=== PATIENT | male | born 1980 | race Caucasian/White ===

== ENCOUNTER 2017-05-26 20:20 | Emergency (ER) | payer MEDICAID, SELFPAY ==
[2017-05-26 20:20] VITALS: BP 136/82; PULSE 87; RESP 17; TEMP 36.3; O2SAT 98; BMI 21.1
--- NOTE | 2017-05-26 21:10 | CT_ITS ---
STUDY: CT ABDOMEN AND PELVIS WITH CONTRAST REASON FOR EXAM: Male, 36 years old. Abdominal pain. RADIATION DOSAGE (If Supplied By Facility): CTDIvol = ( 17.72 ) mGy, DLP = ( 272.30 ) mGycm TECHNIQUE: Transaxial images were obtained from the dome of the diaphragm to the symphysis pubis with oral contrast. 100ml ml of Isovue 300 contrast was administered. Sagittal and coronal images were reconstructed. Individualized dose optimization techniques were used for this CT. COMPARISON: None. FINDINGS: The visualized lung bases are unremarkable. The visualized portions of the heart are within normal limits. Normal liver. There are surgical clips in the gallbladder fossa consistent with a prior cholecystectomy. Normal spleen. Normal pancreas. Normal bilateral adrenal glands. Normal right kidney. Normal left kidney. Normal visualized stomach. Normal small intestine. Normal colon. The appendix is visualized and appears normal. Normal abdominal aorta. Normal inferior vena cava. Normal retroperitoneum. Normal urinary bladder. Normal abdominal wall. Normal osseous structures. CT/Abdomen/Pelvis WITH Contrast IMPRESSION: No definite acute abnormality. Electronically Signed: Jad Wan MD at 23:22 EST , Service support ,
[2017-05-26] MEDS: Ondansetron 4 MG/2 ML Vial IV ×2 (21:30→23:59)
[2017-05-26] MEDS: 0.9% Normal Saline 1,000 ML 150 ML IV (21:31)
[2017-05-26 21:42] LABS: Absolute Lymphocyte Count 2.68 X10^3/ul (0.83-4.51); Absolute Neutrophil Count 11.6 X10^3/uL (2.0-7.7); Basophil# 0.02 X10^3/uL; Basophil% 0.1 % (0-1); Eosinophil# 0.12 X10^3/uL; Eosinophils% 0.8 % (0-5); Hematocrit 43.9 % (40-54); Hemoglobin 15.2 g/dl (13.0-16.5); Lymphocyte # 2.68 X10^3/ul (4.0); Lymphocyte % 17.5 % (19-41); Mean Corp Hgb Conc 34.6 g/gl (32-36); Mean Corpuscular Hgb 29.7 pg (27.0-32.0); Mean Corpuscular Volume 85.7 fL (80-94); Mean Platelet Vol. 10.5 fl (6.2-12.0); Monocyte# 0.86 X10^3/uL; Monocyte% 5.6 % (0-10); Neutrophil # 11.63 X10^3/uL (2.7-7.7); Neutrophil % 75.8 % (47-70); Platelet Count 235 K/mm3 (150-450); RBC Distribution Width CV 12.1 % (11.6-14.6); RBC Distribution Width SD 38.3 fl (35.1-43.9); Red Blood Count 5.12 M/mm3 (4.6-6.2); White Blood Count 15.3 K/mm3 (4.4-11.0)
[2017-05-26 21:45] LABS: POSITIVE COUNT NO; POSITIVE DIFFERENTIAL NO; POSITIVE MORPHOLOGY NO
[2017-05-26 22:07] LABS: Bacteria 0 SEEN /hpf (None Seen); Mucous, Urine 0 SEEN /hpf (<or=2+); Red Blood Cells-Urine 0 SEEN /hpf (0-5); Squamous Epithelial Cells - UA 0 SEEN /hpf (0-5); White Blood Cells 0 SEEN /hpf (0-5)
[2017-05-26 22:10] LABS: Anion Gap 10 (5-15); BUN 4 mg/dL (7-18); BUN/Creat Ratio 5.3 RATIO (10-20); Calcium,Total 8.7 mg/dL (8.5-10.1); Chloride 108 mmol/L (98-107); Creatinine, Serum 0.75 mg/dL (0.70-1.30); EST Glomerular Filtration Rate 123 mL/min (>60); Est Glom Filt Rate - Afr Amer 149 mL/min (>60); Estimated Creatinine Clearance 115.67 ml/min; Glucose 133 mg/dL (74-106); Potassium 3.6 mmol/L (3.5-5.1); Sodium Level 140 mmol/L (136-145)
[2017-05-26 22:20] LABS: Color, Urine Yellow (Yellow); Glucose, Dipstick Normal (Normal); Ketone-Dipstick Negative (Negative); Leukocyte Esterase-Dipstick Negative /ul (Negative); Nitrite-Dipstick Negative (Negative); Occult Blood-Urine Negative /ul (Negative); Protein-Dipstick Negative (Negative); Urine Bilirubin Dipstick Negative (Negative); Urine Clarity Clear (Clear); Urine Urobilinogen 4 mg/dl (Normal)
[2017-05-26 22:28] VITALS: BP 104/62; PULSE 68; RESP 18; O2SAT 100
--- NOTE | 2017-05-26 23:51 | ED.VISSUMM ---
- ER Visit Summary Date of Service: 05/26/17 Chief Complaint: Right-sided abdominal pain History of Present Illness: The patient is a 36 M with right-sided abdominal pain throughout the day today. Patient states it started gradually and continued to worsen throughout the day. He had subjective fevers and chills. He reports nausea but no vomiting. He has not made much of an appetite today and has not eaten much. Patient has had prior cholecystectomy. Physical Examination: Vital signs are unremarkable. Patient is afebrile. Patient's lying in bed in no acute distress. Head and neck examination is unremarkable. Heart is regular rate and rhythm. Lung sounds are clear. Abdomen is soft with tenderness in the right lower quadrant. There is guarding but no rebound. Hypoactive bowel sounds are noted throughout. Patient does not have right CVA tenderness. Test Results: CBC reveals a white count of 15.3 with 75% neutrophils. Chemistry studies are normal. Urine is normal. CT scan of the abdomen and pelvis with p.o. and IV contrast is obtained. There is no evidence of definite acute abnormality. Appendix is well-visualized and appears normal. Emergency Department Course and Treatment: Patient was given morphine, Zofran, and IV fluids on arrival here. Test results were discussed with him. He was encouraged use Tylenol or ibuprofen as needed at home for pain. Follow a bland diet. He is to return for worsening symptoms. Treatment Plan: [] Disposition: Discharge Impression: 1. Right lower quadrant pain 2. Leukocytosis This note was generated with [employer] dictation software. It may contain incorrect words, spelling, and punctuation that were not noted in review of the chart prior to signing ED Disposition - Plan for ED Patient: Disposition: Home or Assisted Living Chief Complaint: Abd Pain Instructions: ED Abdominal Pain Unkn Cause Male Referrals: Kell Dover [Primary Care Provider] - 3-5 Days if not improving
[2017-05-27 00:01] VITALS: BP 99/70; PULSE 61; RESP 18; O2SAT 100
== END 2017-05-27 00:04 | disposition home or self-care (01) ==
PROVIDERS: Emergency Provider Emergency Medicine; Family Provider Family Medicine; PCP Family Medicine
DX: R10.31 Right lower quadrant pain (principal); D72.829 Elevated white blood cell count, unspecified; R11.0 Nausea; K21.9 Gastro-esophageal reflux disease without esophagitis; Z90.49 Acquired absence of other specified parts of digestive tract; Z72.0 Tobacco use
CPT/HCPCS: 74177; 80048; 81001; 85025; 96361; 96374; 96375; 96376; 99283; J7030; Q9967; A4216; J2405

== ENCOUNTER 2017-05-27 16:45 | Emergency (ER) | payer MEDICAID, SELFPAY ==
[2017-05-27 16:46] VITALS: BP 142/78; PULSE 72; RESP 16; TEMP 37.6; O2SAT 100; BMI 19.7
[2017-05-27] MEDS: 0.9% Normal Saline 1,000 ML 1000 ML IV (17:39)
[2017-05-27] MEDS: Ondansetron 4 MG/2 ML Vial IV ×2 (17:40→20:37)
[2017-05-27 17:42] VITALS: PULSE 68; RESP 16
[2017-05-27 17:54] LABS: Absolute Lymphocyte Count 2.63 X10^3/ul (0.83-4.51); Basophil# 0.02 X10^3/uL; Basophil% 0.2 % (0-1); Eosinophil# 0.13 X10^3/uL; Hematocrit 43.2 % (40-54); Hemoglobin 14.9 g/dl (13.0-16.5); Lymphocyte # 2.63 X10^3/ul (4.0); Lymphocyte % 21.1 % (19-41); Mean Corp Hgb Conc 34.5 g/gl (32-36); Mean Corpuscular Hgb 29.8 pg (27.0-32.0); Mean Corpuscular Volume 86.4 fL (80-94); Mean Platelet Vol. 10.2 fl (6.2-12.0); Monocyte# 0.66 X10^3/uL; Monocyte% 5.3 % (0-10); Neutrophil # 8.99 X10^3/uL (2.7-7.7); Neutrophil % 72.3 % (47-70); Platelet Count 215 K/mm3 (150-450); RBC Distribution Width CV 12.4 % (11.6-14.6); RBC Distribution Width SD 39.4 fl (35.1-43.9); White Blood Count 12.4 K/mm3 (4.4-11.0)
[2017-05-27 17:56] LABS: POSITIVE COUNT NO; POSITIVE DIFFERENTIAL NO; POSITIVE MORPHOLOGY NO
[2017-05-27 18:05] LABS: Lactic Acid 1.2 mmol/L (0.4-2.0)
[2017-05-27 18:08] LABS: AST(SGOT) 25 U/L (15-37); Alanine Aminotransfer ALT/SGPT 50 U/L (16-61); Albumin, Serum 3.5 g/dL (3.2-5.0); Alkaline Phosphatase 52 U/L (45-117); Anion Gap 6 (5-15); BUN 4 mg/dL (7-18); BUN/Creat Ratio 5.1 RATIO (10-20); Calcium,Total 8.7 mg/dL (8.5-10.1); Chloride 107 mmol/L (98-107); Creatinine, Serum 0.79 mg/dL (0.70-1.30); EST Glomerular Filtration Rate 116 mL/min (>60); Est Glom Filt Rate - Afr Amer 141 mL/min (>60); Estimated Creatinine Clearance 102.49 ml/min; Globulin 3.9 g/dL (2.2-4.2); Glucose 100 mg/dL (74-106); Potassium 3.7 mmol/L (3.5-5.1); Protein, Total 7.4 g/dL (6.4-8.2); Sodium Level 140 mmol/L (136-145)
[2017-05-27 18:47] VITALS: BP 117/82; PULSE 60; RESP 16; TEMP 36.8
[2017-05-27] MEDS: 0.9% Normal Saline 1,000 ML 150 ML IV (18:47)
[2017-05-27 19:28] LABS: Bacteria 0 SEEN /hpf (None Seen); Mucous, Urine 0 SEEN /hpf (<or=2+); Red Blood Cells-Urine 0 SEEN /hpf (0-5); White Blood Cells 0 SEEN /hpf (0-5)
[2017-05-27 19:32] LABS: Color, Urine Yellow (Yellow); Glucose, Dipstick Normal (Normal); Ketone-Dipstick Negative (Negative); Leukocyte Esterase-Dipstick Negative /ul (Negative); Nitrite-Dipstick Negative (Negative); Occult Blood-Urine Negative /ul (Negative); Protein-Dipstick Negative (Negative); Specific Gravity, Urine 1.005 (1.002-1.030); Urine Bilirubin Dipstick Negative (Negative); Urine Clarity Sl. Cloudy (Clear); Urine Urobilinogen Normal (Normal)
[2017-05-27 19:38] LABS: Squamous Epithelial Cells - UA 0-5 SEEN /hpf (0-5)
--- NOTE | 2017-05-27 20:24 | ED.DCSUM_ITS ---
- ER Visit Summary Date of Service: 05/27/17 Chief Complaint: Abdominal pain History of Present Illness: The patient is a 36 M with onset of right lower quadrant abdominal pain yesterday. Patient was seen and evaluated in the emergency room last night. He was noted to have a leukocytosis but otherwise normal labs and a normal CT scan. Patient states that today he has developed a fever up to 101.4 this morning. He also states that he is having some diarrhea. He does report continued poor appetite. Physical Examination: Vital signs in triage include a temperature 99.6 TA, but this was repeated in the room and is 98.3 orally. Remainder of vitals are normal. Head and neck examination is normal. Heart is regular rate and rhythm. Lung sounds are clear. Abdomen is soft with mild to moderate tenderness in the right lower quadrant. There is no guarding or rebound. He has hypoactive bowel sounds throughout. Test Results: CBC reveals a white count of 12.4 with 72% neutrophils. This is compared to a white count of 15 yesterday. Chemistry studies, LFTs, and urinalysis remain normal. Lactate was obtained tonight and is normal. Emergency Department Course and Treatment: Patient was given morphine, Zofran, and IV fluids. On repeat examination abdomen is soft with very mild tenderness in the right lower quadrant. There continues to be no guarding or rebound. With the patient's physical exam essentially unchanged or even slightly improved when compared to last night, I do not feel that repeat imaging is warranted. In addition, labs are improving. Patient began a perception for 12 tabs of [place] along with Zofran. He is to follow-up with his primary care physician or return here for worsening symptoms. Treatment Plan: [] Disposition: Discharge Impression: 1. Right lower quadrant pain, uncertain etiology 2. Improving leukocytosis This note was generated with [employer] dictation software. It may contain incorrect words, spelling, and punctuation that were not noted in review of the chart prior to signing ED Disposition - Plan for ED Patient: Disposition: Home or Assisted Living Chief Complaint: Abd Pain Instructions: ED Abdominal Pain Unkn Cause Male Prescriptions: Hydrocodone Bitart/Apap 5-325 [Banner 5/325] 1 - 2 tablet PO Q6H PRN PRN 3 Days # 12 tablet PRN Reason: Pain Ondansetron [Zofran Odt] 4 mg PO Q8H PRN PRN #10 tab PRN Reason: Nausea Referrals: Kell Dover [Primary Care Provider] - 3-5 Days
--- NOTE | 2017-05-27 20:24 | ED.DEP ---
ED Disposition - Plan for ED Patient: Disposition: Home or Assisted Living Chief Complaint: Abd Pain Instructions: ED Abdominal Pain Unkn Cause Male Prescriptions: Hydrocodone Bitart/Apap 5-325 [[place]ynn 5/325] 1 - 2 tablet PO Q6H PRN PRN 3 Days #12 tablet PRN Reason: Pain Ondansetron [Zofran Odt] 4 mg PO Q8H PRN PRN #10 tab PRN Reason: Nausea Referrals: Kell Dover [Primary Care Provider] - 3-5 Days
[2017-05-27 20:39] VITALS: RESP 16
[2017-05-27 20:54] VITALS: BP 118/74; PULSE 56; RESP 16; O2SAT 99
== END 2017-05-27 20:56 | disposition home or self-care (01) ==
PROVIDERS: Emergency Provider Emergency Medicine; Family Provider Family Medicine; PCP Family Medicine
DX: R10.31 Right lower quadrant pain (principal); D72.829 Elevated white blood cell count, unspecified; R19.7 Diarrhea, unspecified; R11.0 Nausea; Z72.0 Tobacco use
CPT/HCPCS: 80048; 80076; 81001; 83605; 85025; 96361; 96374; 96375; 96376; 99283; J7030; A4216; J2405

== ENCOUNTER 2017-06-01 21:05 | Emergency (ER) | payer MEDICAID, SELFPAY ==
[2017-06-01 21:06] VITALS: BP 120/78; PULSE 91; RESP 16; TEMP 37.1; O2SAT 98; BMI 20.5
[2017-06-01] MEDS: Ondansetron ODT 4 MG Tablet PO (22:34)
[2017-06-01 22:47] LABS: Absolute Lymphocyte Count 2.97 X10^3/ul (0.83-4.51); Absolute Neutrophil Count 8.3 X10^3/uL (2.0-7.7); Basophil# 0.03 X10^3/uL; Basophil% 0.2 % (0-1); Eosinophil# 0.25 X10^3/uL; Hematocrit 42.5 % (40-54); Hemoglobin 14.4 g/dl (13.0-16.5); Lymphocyte # 2.97 X10^3/ul (4.0); Lymphocyte % 23.9 % (19-41); Mean Corp Hgb Conc 33.9 g/gl (32-36); Mean Corpuscular Hgb 29.3 pg (27.0-32.0); Mean Corpuscular Volume 86.6 fL (80-94); Mean Platelet Vol. 10.8 fl (6.2-12.0); Monocyte# 0.82 X10^3/uL; Monocyte% 6.6 % (0-10); Neutrophil # 8.32 X10^3/uL (2.7-7.7); Neutrophil % 67.1 % (47-70); Platelet Count 219 K/mm3 (150-450); RBC Distribution Width CV 12.4 % (11.6-14.6); RBC Distribution Width SD 39.7 fl (35.1-43.9); Red Blood Count 4.91 M/mm3 (4.6-6.2); White Blood Count 12.4 K/mm3 (4.4-11.0)
[2017-06-01] MEDS: Dicyclomine 10 MG Capsule 20 MG PO (22:50)
[2017-06-01 22:52] LABS: POSITIVE COUNT NO; POSITIVE DIFFERENTIAL NO; POSITIVE MORPHOLOGY NO
[2017-06-01 22:53] LABS: ALB/GLOB Ratio 0.8 RATIO (0.9-2.4); AST(SGOT) 31 U/L (15-37); Alanine Aminotransfer ALT/SGPT 48 U/L (16-61); Albumin, Serum 3.2 g/dL (3.2-5.0); Alkaline Phosphatase 54 U/L (45-117); Anion Gap 6 (5-15); BUN 7 mg/dL (7-18); BUN/Creat Ratio 10.1 RATIO (10-20); Calcium,Total 8.3 mg/dL (8.5-10.1); Chloride 109 mmol/L (98-107); Creatinine, Serum 0.69 mg/dL (0.70-1.30); EST Glomerular Filtration Rate 135 mL/min (>60); Est Glom Filt Rate - Afr Amer 164 mL/min (>60); Estimated Creatinine Clearance 122.37 ml/min; Globulin 3.9 g/dL (2.2-4.2); Glucose 90 mg/dL (74-106); Lipase 209 U/L (73-393); Potassium 3.8 mmol/L (3.5-5.1); Protein, Total 7.1 g/dL (6.4-8.2); Sodium Level 142 mmol/L (136-145)
[2017-06-01 23:04] LABS: Color, Urine Yellow (Yellow); Glucose, Dipstick Normal (Normal); Ketone-Dipstick Negative (Negative); Leukocyte Esterase-Dipstick 25 /ul (Negative); Nitrite-Dipstick Negative (Negative); Occult Blood-Urine Negative /ul (Negative); Protein-Dipstick 15 mg/dl (Negative); Specific Gravity, Urine 1.015 (1.002-1.030); Urine Bilirubin Dipstick Negative (Negative); Urine Clarity Sl. Cloudy (Clear); Urine Urobilinogen 1 mg/dl (Normal)
--- NOTE | 2017-06-01 23:06 | ED.DCSUM_ITS ---
- ER Visit Summary Date of Service: 06/01/17 Chief Complaint: Lower quadrant abdominal pain History of Present Illness: The patient is a 36 M who presents for right lower quadrant abdominal pain for 4 days. This is patient's third visit for the same complaint. He states he has been having right lower quadrant abdominal pain with fever, nausea and vomiting. He states he vomited once today. He also endorses 3 days of diarrhea. At his last visit he was prescribed [place] and states that does help. He denies any urinary symptoms, no concern for STI, no discharge or bleeding. No blood in his bowel movements. He has an appointment on with his primary care doctor. He denies any medical history. No chest pain, shortness of breath, back pain or other complaints. Physical Examination: Vital signs: afebrile, hemodynamically stable, no hypoxia on room air General: well nourished, well developed, in no distress Skin: warm, dry, no rash, no pallor HEENT: normocephalic and atraumatic; PERRL, EOMI, moist mucous membranes Cardiovascular: regular rate and rhythm without murmurs, no peripheral edema, 2 + pulses all distal extremities Respiratory: No increased work of breathing, lungs are clear to auscultation bilaterally, no rales, rhonchi or wheezing Abdominal: Abdomen is soft, nontender with normoactive bowel sounds, no guarding or rebound, no masses, no tender inguinal lymphadenopathy MSK: Moves all extremities, no deformities, normal strength Neuro: Awake and alert, oriented ?4. No facial droop, sensation and motor function intact and symmetric Test Results: Abnormal Lab Results 06/01/17 06/01/17 22:25 22:25 WBC 12.4 H RBC 4.91 Hgb 14.4 Hct 42.5 MCV 86.6 MCH 29.3 MCHC 33.9 RDW 12.4 RDW Differential 39.7 Plt Count 219 MPV 10.8 Immature Gran % (Auto) 0.200 Neut % (Auto) 67.1 Lymph % (Auto) 23.9 [place] % (Auto) 6.6 Eos % (Auto) 2.0 Baso % (Auto) 0.2 Absolute Neuts (auto) 8.3 H Absolute Lymphs (auto) 2.97 Total Counted Not Reportable Sodium 142 Potassium 3.8 Chloride 109 H Carbon Dioxide 27.0 Anion Gap 6 BUN 7 Creatinine 0.69 L Estim Creat Clear Calc 122.37 Est GFR (MDRD) Af Amer 164 Est GFR (MDRD) Non-Af 135 BUN/Creatinine Ratio 10.1 Glucose 90 Calcium 8.3 L Total Bilirubin 0.40 AST 31 ALT 48 Alkaline Phosphatase 54 Total Protein 7.1 Albumin 3.2 Globulin 3.9 Albumin/Globulin Ratio 0.8 L Lipase 209 Emergency Department Course and Treatment: This is patient's third visit for the same complaint, and his prior records were reviewed. He had thorough workups, including lab work and urinalysis and a CT scan of the abdomen and pelvis that showed no acute processes. Patient's exam today is completely benign and thus no imaging will be repeated. Lab work shows continued improvement of his CBC, with normalization of the differential. No electrolyte derangements or hepatic derangements. Patient was given Bentyl and Zofran for symptomatic relief. Here he has an appointment on with his primary care doctor, and no concerning findings on workup or exam are noted that would require further imaging, intervention or admission. Patient is encouraged to keep the appointment on and may need a referral to GI doctor or colonoscopy for further characterization of his continued right lower quadrant pain. Patient agreed with this plan was discharged home. Treatment Plan: [] Disposition: [] Impression: Abdominal pain This note was generated with [employer] dictation software. It may contain incorrect words, spelling, and punctuation that were not noted in review of the chart prior to signing ED Disposition - Plan for ED Patient: Chief Complaint: Abd Pain Referrals: Kell Dover [Primary Care Provider] -
--- NOTE | 2017-06-01 23:26 | ED.DEP ---
ED Disposition - Plan for ED Patient: Disposition: Home or Assisted Living Chief Complaint: Abd Pain Instructions: ED Abdominal Pain Unkn Cause Prescriptions: Ondansetron [Zofran Odt] 4 mg PO Q8H PRN PRN #10 tab PRN Reason: Nausea Dicyclomine HCl [Bentyl] 20 mg PO TIDAC #20 cap Referrals: Kell Dover [Primary Care Provider] - Keep Og appointment Additional Instructions: Your workup for your abdominal pain showed improvement in your blood work. The Bentyl and Zofran as needed for pain and nausea. Please keep your appointment on with your primary care doctor for another evaluation. In the meantime if you have any worsening of your condition or any new concerning symptoms, please follow-up with your doctor as soon as possible or come back to the emergency department for another evaluation.
[2017-06-01 23:54] VITALS: BP 94/62; PULSE 58; RESP 16; O2SAT 96
== END 2017-06-01 23:54 | disposition home or self-care (01) ==
PROVIDERS: Emergency Provider Emergency Medicine; Family Provider Family Medicine; PCP Family Medicine
DX: R10.31 Right lower quadrant pain (principal); R11.2 Nausea with vomiting, unspecified; R50.9 Fever, unspecified; Z72.0 Tobacco use
CPT/HCPCS: 80053; 81002; 83690; 85025; 87086; 87088; 99283; A4216

== ENCOUNTER 2017-06-09 13:41 | Emergency (ER) | payer MEDICAID, SELFPAY ==
[2017-06-09 13:42] VITALS: BP 131/71; PULSE 95; RESP 18; TEMP 37.1; O2SAT 100; BMI 20.1
[2017-06-09 14:39] VITALS: BP 120/71; PULSE 88; RESP 16; O2SAT 99
[2017-06-09] MEDS: Ondansetron 4 MG/2 ML Vial IV (15:38)
[2017-06-09 15:52] LABS: Absolute Lymphocyte Count 1.68 X10^3/ul (0.83-4.51); Absolute Neutrophil Count 7.5 X10^3/uL (2.0-7.7); Basophil# 0.01 X10^3/uL; Basophil% 0.1 % (0-1); Eosinophil# 0.11 X10^3/uL; Eosinophils% 1.1 % (0-5); Hemoglobin 14.8 g/dl (13.0-16.5); Lymphocyte # 1.68 X10^3/ul (4.0); Lymphocyte % 16.6 % (19-41); Mean Corp Hgb Conc 34.4 g/gl (32-36); Mean Corpuscular Hgb 29.8 pg (27.0-32.0); Mean Corpuscular Volume 86.7 fL (80-94); Monocyte# 0.81 X10^3/uL; Neutrophil # 7.48 X10^3/uL (2.7-7.7); Platelet Count 200 K/mm3 (150-450); RBC Distribution Width CV 12.9 % (11.6-14.6); RBC Distribution Width SD 41.2 fl (35.1-43.9); Red Blood Count 4.96 M/mm3 (4.6-6.2); White Blood Count 10.1 K/mm3 (4.4-11.0)
[2017-06-09 15:53] LABS: POSITIVE COUNT NO; POSITIVE DIFFERENTIAL NO; POSITIVE MORPHOLOGY NO
[2017-06-09 16:06] VITALS: BP 106/72; PULSE 66; RESP 14; O2SAT 100
[2017-06-09 16:09] LABS: ALB/GLOB Ratio 0.9 RATIO (0.9-2.4); AST(SGOT) 34 U/L (15-37); Alanine Aminotransfer ALT/SGPT 51 U/L (16-61); Albumin, Serum 3.6 g/dL (3.2-5.0); Alkaline Phosphatase 55 U/L (45-117); Anion Gap 4 (5-15); BUN 8 mg/dL (7-18); BUN/Creat Ratio 10.5 RATIO (10-20); Calcium,Total 8.7 mg/dL (8.5-10.1); Chloride 108 mmol/L (98-107); Creatinine, Serum 0.76 mg/dL (0.70-1.30); EST Glomerular Filtration Rate 121 mL/min (>60); Est Glom Filt Rate - Afr Amer 147 mL/min (>60); Estimated Creatinine Clearance 108.67 ml/min; Globulin 3.9 g/dL (2.2-4.2); Glucose 90 mg/dL (74-106); Lipase 120 U/L (73-393); Potassium 4.1 mmol/L (3.5-5.1); Protein, Total 7.5 g/dL (6.4-8.2); Sodium Level 137 mmol/L (136-145)
[2017-06-09] MEDS: Dicyclomine 20 MG/2 ML Vial IM (16:26)
--- NOTE | 2017-06-09 16:29 | ED.VISSUMM ---
- ER Visit Summary Date of Service: 06/09/17 Chief Complaint: Abdominal pain History of Present Illness: The patient is a 36 M resents with abdominal pain that has been getting worse over the past week. Patient states he was seen here 1 week ago for the same problem. Patient states he had a CT scan done at that time which was normal. Patient states he was given a prescription for Bentyl which she has been taking with no relief. Patient states the pain is worse over the right lower abdomen. Patient describes the pain as sharp. Patient states the pain is worse with movement and hitting a bump in the road. Patient states his pain improves when he pulls his knees up into his chest. Patient denies any hematemesis or coffee-ground emesis. Patient denies any melena or hematochezia. Patient denies any urinary complaints. Patient admits to decreased appetite. Physical Examination: All signs are stable. Patient is afebrile. Patient is in no acute distress. Oral mucosa is pink and moist. Oropharynx is clear. Neck is supple. Trachea is midline. There is no JVD or lymphadenopathy noted. Heart was regular rate and rhythm. Lungs were clear and equal bilateral. Abdomen is soft. There is some right lower quadrant tenderness. There is no rebound or guarding noted. Bowel sounds are normal. There are no masses palpated. Cranial nerves II through XII are intact. There are no focal motor or sensory deficits noted. Test Results: CBC, metabolic profile, and lipase were obtained and were all within normal limits. Emergency Department Course and Treatment: Patient was given Zofran and Bentyl here. Patient had minimal relief with this. I discussed with the patient the fact that he had a normal CT scan 1 week ago that did not show any evidence of appendicitis. Since his labs are normal again today. I do not feel he has appendicitis at this time. Patient was given a prescription for a short course of Dolobid. Patient was instructed to follow-up with his primary care physician tomorrow as scheduled. Patient understood and was agreeable with the plan. All questions were answered. Treatment Plan: Disposition: Discharge home Impression: Abdominal pain of uncertain etiology This note was generated with [employer] dictation software. It may contain incorrect words, spelling, and punctuation that were not noted in review of the chart prior to signing ED Disposition - Plan for ED Patient: Chief Complaint: Abd Pain Referrals: Kell Dover [Primary Care Provider] -
--- NOTE | 2017-06-09 16:44 | ED.VISSUMM ---
- ER Visit Summary Date of Service: 06/09/17 Chief Complaint: [] History of Present Illness: The patient is a 36 M [] Physical Examination: [] Test Results: [] Emergency Department Course and Treatment: [] Treatment Plan: [] Disposition: [] Impression: [] This note was generated with [employer] dictation software. It may contain incorrect words, spelling, and punctuation that were not noted in review of the chart prior to signing ED Disposition - Plan for ED Patient: Disposition: Home or Assisted Living Chief Complaint: Abd Pain Diagnosis: Abdominal pain, right lower quadrant Instructions: ED Abdominal Pain Unkn Cause Prescriptions: Diflunisal [Dolobid] 500 mg PO BID #20 tab Referrals: Kell Dover [Primary Care Provider] -
== END 2017-06-09 16:55 | disposition home or self-care (01) ==
PROVIDERS: Emergency Provider Emergency Medicine; Family Provider Family Medicine; PCP Family Medicine
DX: R10.9 Unspecified abdominal pain (principal); R11.2 Nausea with vomiting, unspecified; R19.7 Diarrhea, unspecified; F17.200 Nicotine dependence, unspecified, uncomplicated; Z90.49 Acquired absence of other specified parts of digestive tract
CPT/HCPCS: 80053; 83690; 85025; 96372; 96374; 99283; A4216; J2405

== ENCOUNTER 2017-07-01 10:35 | Emergency (ER) | payer MEDICAID, SELFPAY ==
[2017-07-01 10:37] VITALS: BP 136/72; PULSE 83; RESP 16; TEMP 36.8; O2SAT 100; BMI 20.5
[2017-07-01] MEDS: 0.9% Normal Saline 1,000 ML 1000 ML IV (12:15)
[2017-07-01 12:39] LABS: Bacteria 0 SEEN /hpf (None Seen); Mucous, Urine 0 SEEN /hpf (<or=2+); Red Blood Cells-Urine 0 SEEN /hpf (0-5); Squamous Epithelial Cells - UA 0 SEEN /hpf (0-5); White Blood Cells 0 SEEN /hpf (0-5)
[2017-07-01 12:43] LABS: Absolute Lymphocyte Count 2.67 X10^3/ul (0.83-4.51); Absolute Neutrophil Count 7.7 X10^3/uL (2.0-7.7); Basophil# 0.02 X10^3/uL; Basophil% 0.2 % (0-1); Eosinophil# 0.21 X10^3/uL; Eosinophils% 1.8 % (0-5); Hematocrit 46.7 % (40-54); Lymphocyte # 2.67 X10^3/ul (4.0); Lymphocyte % 23.1 % (19-41); Mean Corp Hgb Conc 34.3 g/gl (32-36); Mean Corpuscular Hgb 29.8 pg (27.0-32.0); Mean Platelet Vol. 10.5 fl (6.2-12.0); Monocyte# 0.92 X10^3/uL; Monocyte% 7.9 % (0-10); Neutrophil # 7.73 X10^3/uL (2.7-7.7); Neutrophil % 66.7 % (47-70); POSITIVE COUNT NO; POSITIVE DIFFERENTIAL NO; POSITIVE MORPHOLOGY NO; Platelet Count 200 K/mm3 (150-450); RBC Distribution Width CV 13.1 % (11.6-14.6); RBC Distribution Width SD 41.5 fl (35.1-43.9); Red Blood Count 5.37 M/mm3 (4.6-6.2); White Blood Count 11.6 K/mm3 (4.4-11.0)
[2017-07-01 12:54] LABS: Color, Urine Yellow (Yellow); Glucose, Dipstick Normal (Normal); Ketone-Dipstick Negative (Negative); Leukocyte Esterase-Dipstick Negative /ul (Negative); Nitrite-Dipstick Negative (Negative); Occult Blood-Urine Negative /ul (Negative); Protein-Dipstick Negative (Negative); Urine Bilirubin Dipstick Negative (Negative); Urine Clarity Clear (Clear); Urine Urobilinogen Normal (Normal)
[2017-07-01 13:00] LABS: Anion Gap 4 (5-15); BUN 7 mg/dL (7-18); BUN/Creat Ratio 9.1 RATIO (10-20); Calcium,Total 8.9 mg/dL (8.5-10.1); Chloride 107 mmol/L (98-107); Creatinine, Serum 0.77 mg/dL (0.70-1.30); EST Glomerular Filtration Rate 120 mL/min (>60); Est Glom Filt Rate - Afr Amer 145 mL/min (>60); Estimated Creatinine Clearance 109.32 ml/min; Glucose 92 mg/dL (74-106); Lipase 151 U/L (73-393); Potassium 4.1 mmol/L (3.5-5.1); Sodium Level 140 mmol/L (136-145)
--- NOTE | 2017-07-01 13:12 | ED.VISSUMM ---
- ER Visit Summary Date of Service: 07/01/17 Chief Complaint: Abdominal pain History of Present Illness: The patient is a 36 M who presents with right-sided abdominal pain that became worse today. Patient states this pain has been intermittent for months. Patient had a CT scan done last month which was negative for any acute abdominal process. Patient states the pain is worse on his right side of his abdomen. Patient denies any nausea or vomiting. Patient admits to some diarrhea but denies any melena or hematochezia. Patient also admits to some urinary frequency. Patient states he has been taking his Dolobid as needed for pain but states this has not been helping. Physical Examination: Vital signs are stable. Patient is afebrile. Patient is in no acute distress. Heart was regular rate and rhythm. Lungs are clear and equal bilaterally. There is good respiratory effort noted. Oral mucosa is pink and moist. Neck is supple. Trachea is midline. Abdomen is soft. There is some mild right-sided abdominal tenderness. There is no rebound or guarding noted. Rovsing sign was negative. Cranial nerves II through XII are intact. There are no focal motor or sensory deficits noted. The remaining physical exam is within normal limits. Test Results: CBC, basic metabolic profile, and urinalysis were obtained and were all within normal limits. Emergency Department Course and Treatment: Patient felt better on reevaluation. Patient was given a prescription for Bentyl. Patient was instructed to follow-up with his primary care physician in 5-7 days. Patient was also advised he may need to see a pickle sorter for further evaluation of his abdominal pain. Patient understood and was agreeable with the plan. All questions were answered. Disposition: Discharge home Impression: Abdominal pain This note was generated with [employer] dictation software. It may contain incorrect words, spelling, and punctuation that were not noted in review of the chart prior to signing ED Disposition - Plan for ED Patient: Disposition: Home or Assisted Living Chief Complaint: Abd Pain Diagnosis: Abdominal pain Instructions: ED Abdominal Pain Unkn Cause Prescriptions: Dicyclomine HCl [Bentyl] 20 mg PO TIDAC #20 cap Referrals: Kell Dover MD [Primary Care Provider] -
--- NOTE | 2017-07-01 13:17 | ED.DCSUM_ITS ---
- ER Visit Summary Date of Service: 07/01/17 Chief Complaint: Abdominal pain History of Present Illness: The patient is a 36 M who presents with right-sided abdominal pain that became worse today. Patient states this pain has been intermittent for months. Patient had a CT scan done last month which was negative for any acute abdominal process. Patient states the pain is worse on his right side of his abdomen. Patient denies any nausea or vomiting. Patient admits to some diarrhea but denies any melena or hematochezia. Patient also admits to some urinary frequency. Patient states he has been taking his Dolobid as needed for pain but states this has not been helping. Physical Examination: Vital signs are stable. Patient is afebrile. Patient is in no acute distress. Heart was regular rate and rhythm. Lungs are clear and equal bilaterally. There is good respiratory effort noted. Oral mucosa is pink and moist. Neck is supple. Trachea is midline. Abdomen is soft. There is some mild right-sided abdominal tenderness. There is no rebound or guarding noted. Rovsing sign was negative. Cranial nerves II through XII are intact. There are no focal motor or sensory deficits noted. The remaining physical exam is within normal limits. Test Results: CBC, basic metabolic profile, and urinalysis were obtained and were all within normal limits. Emergency Department Course and Treatment: Patient felt better on reevaluation. Patient was given a prescription for Bentyl. Patient was instructed to follow -up with his primary care physician in 5-7 days. Patient was also advised he may need to see a subway conductor for further evaluation of his abdominal pain. Patient understood and was agreeable with the plan. All questions were answered. Disposition: Discharge home Impression: Abdominal pain This note was generated with [employer] dictation software. It may contain incorrect words, spelling, and punctuation that were not noted in review of the chart prior to signing ED Disposition - Plan for ED Patient: Disposition: Home or Assisted Living Chief Complaint: Abd Pain Diagnosis: Abdominal pain Instructions: ED Abdominal Pain Unkn Cause Prescriptions: Dicyclomine HCl [Bentyl] 20 mg PO TIDAC #20 cap Referrals: Kell Dover MD [Primary Care Provider] -
[2017-07-01 13:36] VITALS: BP 119/76; PULSE 60; RESP 18; O2SAT 100
== END 2017-07-01 13:38 | disposition home or self-care (01) ==
PROVIDERS: Emergency Provider Emergency Medicine; Family Provider Family Medicine; PCP Family Medicine
DX: R10.9 Unspecified abdominal pain (principal); F17.200 Nicotine dependence, unspecified, uncomplicated
CPT/HCPCS: 80048; 81001; 83690; 85025; 99283; J7030; A4216

== ENCOUNTER → 2017-07-10 15:23 | Outpatient (CLI) | payer MEDICAID, SELFPAY ==
--- NOTE | 2017-07-10 15:25 | RAD_ITS ---
STUDY: X-RAY - RIGHT HAND, ATTENTION THIRD FINGER REASON FOR EXAM: Male, 36 years old. Closed the third finger in a car door. TECHNIQUE: 3 view(s) of the finger were obtained. COMPARISON: Prior third finger radiographs of February 11, 2017 FINDINGS: Normal metacarpal head. Normal metacarpophalangeal joint. Normal proximal phalanx. Minor residua of prior orthopedic pin tract in the distal end of the middle phalanx. Old deformity of the terminal tuft secondary to prior injury. Normal proximal interphalangeal joint. Early degenerative changes of the distal interphalangeal joint. RAD/Finger(s) Min 2 Views IMPRESSION: No acute fracture or dislocation. Old deformities as stated above secondary to prior injury. Electronically Signed: Ying Carranza MD at 16:28 EDT , Service support ,
== END ==
PROVIDERS: Family Provider Family Medicine; PCP Family Medicine; Visit Provider Physician Assistant Medical
DX: S67.192A Crushing injury of right middle finger, initial encounter (principal)
CPT/HCPCS: 73140

== ENCOUNTER 2017-09-08 13:19 | Emergency (ER) | payer MEDICAID, SELFPAY ==
[2017-09-08 13:19] VITALS: BP 114/67; PULSE 98; RESP 18; TEMP 37.6; O2SAT 99; BMI 19.1
--- NOTE | 2017-09-08 13:45 | CT_ITS ---
STUDY: CT ABDOMEN AND PELVIS WITH CONTRAST REASON FOR EXAM: Male, 36 years old. Abdominal pain. RADIATION DOSAGE (If Supplied By Facility): CTDIvol = ( 9.26 ) mGy, DLP = ( 407.66 ) mGycm TECHNIQUE: Transaxial images were obtained from the dome of the diaphragm to the symphysis pubis without oral contrast. 100 ml of Isovue 300 contrast was administered. Sagittal and coronal images were reconstructed. Individualized dose optimization techniques were used for this CT. COMPARISON: May 26, 2017 FINDINGS: The visualized lung bases are unremarkable. The visualized portions of the heart are within normal limits. There is hepatomegaly with diffuse hepatic enlargement. There are surgical clips in the gallbladder fossa consistent with a prior cholecystectomy. Normal spleen. Normal pancreas. Normal bilateral adrenal glands. Normal right kidney. Normal left kidney. There is mild diffuse wall thickening of the stomach. Normal small intestine. Normal colon. The appendix is visualized and appears normal. Normal abdominal aorta. Normal inferior vena cava. Normal retroperitoneum. Normal urinary bladder. There is no free fluid in the abdomen or pelvis. Normal abdominal wall. Normal osseous structures. CT/Abdomen/Pelvis WITH Contrast IMPRESSION: No dominant mass or obstruction. Wall thickening of the stomach suggesting gastritis or ulcer disease. Hepatomegaly. No hydronephrosis. Electronically Signed: Von Baugh MD at 16:24 EDT , Service support ,
[2017-09-08 14:08] LABS: Absolute Neutrophil Count 5.6 X10^3/uL (2.0-7.7); Basophil# 0.03 X10^3/uL; Basophil% 0.4 % (0-1); Eosinophil# 0.17 X10^3/uL; Eosinophils% 2.1 % (0-5); Hematocrit 41.9 % (40-54); Hemoglobin 15.1 g/dl (13.0-16.5); Lymphocyte % 19.7 % (19-41); Mean Corpuscular Hgb 30.7 pg (27.0-32.0); Mean Corpuscular Volume 85.2 fL (80-94); Mean Platelet Vol. 10.8 fl (6.2-12.0); Monocyte# 0.76 X10^3/uL; Monocyte% 9.4 % (0-10); Neutrophil # 5.55 X10^3/uL (2.7-7.7); Neutrophil % 68.3 % (47-70); POSITIVE COUNT NO; POSITIVE DIFFERENTIAL NO; POSITIVE MORPHOLOGY NO; Platelet Count 205 K/mm3 (150-450); RBC Distribution Width CV 12.2 % (11.6-14.6); RBC Distribution Width SD 37.7 fl (35.1-43.9); Red Blood Count 4.92 M/mm3 (4.6-6.2); White Blood Count 8.1 K/mm3 (4.4-11.0)
[2017-09-08 14:20] LABS: AST(SGOT) 32 U/L (15-37); Alanine Aminotransfer ALT/SGPT 49 U/L (16-61); Albumin, Serum 3.5 g/dL (3.2-5.0); Alkaline Phosphatase 62 U/L (45-117); Anion Gap 6 (5-15); BUN 8 mg/dL (7-18); BUN/Creat Ratio 8.6 RATIO (10-20); Calcium,Total 8.5 mg/dL (8.5-10.1); Chloride 109 mmol/L (98-107); Creatinine, Serum 0.93 mg/dL (0.70-1.30); EST Glomerular Filtration Rate 97 mL/min (>60); Est Glom Filt Rate - Afr Amer 117 mL/min (>60); Estimated Creatinine Clearance 84.57 ml/min; Globulin 3.7 g/dL (2.2-4.2); Glucose 73 mg/dL (74-106); Lipase 176 U/L (73-393); Potassium 3.5 mmol/L (3.5-5.1); Protein, Total 7.2 g/dL (6.4-8.2); Sodium Level 139 mmol/L (136-145)
[2017-09-08] MEDS: Morphine 2 MG/ML Syringe IV (14:21)
[2017-09-08] MEDS: Ketorolac 30 MG/ML Syringe IV (14:21)
[2017-09-08] MEDS: Ondansetron 4 MG/2 ML Vial IV (14:21)
[2017-09-08] MEDS: 0.9% Normal Saline 1,000 ML 150 ML IV (14:21)
[2017-09-08 14:28] LABS: Bacteria 0 SEEN /hpf (None Seen); Mucous, Urine 0 SEEN /hpf (<or=2+); Red Blood Cells-Urine 0 SEEN /hpf (0-5); Squamous Epithelial Cells - UA 0 SEEN /hpf (0-5); White Blood Cells 0 SEEN /hpf (0-5)
[2017-09-08 14:31] LABS: Color, Urine Yellow (Yellow); Glucose, Dipstick Normal (Normal); Ketone-Dipstick Negative (Negative); Leukocyte Esterase-Dipstick Negative /ul (Negative); Nitrite-Dipstick Negative (Negative); Occult Blood-Urine Negative /ul (Negative); Protein-Dipstick Negative (Negative); Urine Bilirubin Dipstick Negative (Negative); Urine Clarity Clear (Clear); Urine Urobilinogen Normal (Normal); Urine pH 6.5 (5.0 - 8.0)
--- NOTE | 2017-09-08 15:33 | ED.DCSUM_ITS ---
- ER Visit Summary Date of Service: 09/08/17 Chief Complaint: Abdominal pain History of Present Illness: The patient is a 36 M complains of right lower quadrant pain for the past 3 months. Today the pain was worse. He reports fever of 101 yesterday. He has had no vomiting or diarrhea. He does complain of increased pain with deep breath or with extension of his right leg. Past history significant for reflux disease and hepatitis C. Patient is not currently on medication for his hepatitis states it is not regularly followed. He has had prior cholecystectomy. Physical Examination: Vital signs are significant only for temperature 99.6 TA in triage. Repeat oral temperature at the time of my examination is 98.6. Head neck examination is unremarkable. Heart is regular rate and rhythm. Lung sounds are clear. Abdomen is soft with moderate tenderness to the right lower quadrant. There is no guarding or rebound on exam. He has hypoactive bowel sounds throughout. There is no CVA tenderness. Test Results: CBC and chemistry studies are unremarkable. LFTs and lipase are normal. Urinalysis reveals no infection. Emergency Department Course and Treatment: Patient was given Toradol, Zofran, and IV fluids. I did discuss with him his past history of heroin abuse. He has been clean for 2 years. After discussion we agreed to leave small dose of morphine. He was given 2 mg. On repeat evaluation he is resting comfortably. He is in no distress. He does ask me for additional morphine and I declined. Patient states he attempted to follow-up with GI locally but that doctor did not accept his insurance. Patient will follow-up with PCP and attempts to get help finding a GI doctor for follow-up. We will begin a prescription for Bentyl and Zofran. Treatment Plan: [] Disposition: Discharge Impression: Abdominal pain, uncertain etiology This note was generated with [employer]ation software. It may contain incorrect words, spelling, and punctuation that were not noted in review of the chart prior to signing ED Disposition - Plan for ED Patient: Chief Complaint: Abd Pain Referrals: Kell Dover MD [Primary Care Provider] -
--- NOTE | 2017-09-08 17:07 | ED.DEP ---
ED Disposition - Plan for ED Patient: Disposition: Home or Assisted Living Chief Complaint: Abd Pain Instructions: ED Abdominal Pain Unkn Cause Male Prescriptions: Ondansetron [Zofran Odt] 4 mg PO Q8H PRN PRN #10 tablet PRN Reason: Nausea Dicyclomine HCl [Bentyl] 20 mg PO TIDAC #20 capsule Referrals: Kell Dover MD [Primary Care Provider] - Quinn Bliss MD [STAFF PHYSICIAN] -
[2017-09-08 17:14] VITALS: BP 135/74; PULSE 68; RESP 15; O2SAT 98
== END 2017-09-08 17:15 | disposition home or self-care (01) ==
PROVIDERS: Emergency Provider Emergency Medicine; Family Provider Family Medicine; PCP Family Medicine
DX: R10.31 Right lower quadrant pain (principal); Z72.0 Tobacco use
CPT/HCPCS: 74177; 80048; 80076; 81001; 83690; 85025; 99283; J7030; Q9967; A4216; J2405

== ENCOUNTER 2017-10-07 23:05 | Emergency (ER) | payer MEDICAID, SELFPAY ==
[2017-10-07 23:07] VITALS: BP 131/85; PULSE 108; RESP 24; TEMP 36.9; O2SAT 98; BMI 20.7
--- NOTE | 2017-10-08 00:15 | ED.DCSUM_ITS ---
- ER Visit Summary Date of Service: 10/08/17 Chief Complaint: Heroin overdose History of Present Illness: The patient is a [address] brianna Gusman. He reports that he injected heroin into his left antecubital fossa. Shortly thereafter he was found unresponsive in the bathroom at [facility]. He does not want help with his opiate addiction. Review of systems: General: No fever, chills, cold sweats. Cardiovascular: No chest pain, palpitations. Respiratory: No cough, shortness of breath, dyspnea on exertion. Gastrointestinal: No abdominal pain, nausea, vomiting, diarrhea, melena, or hematochezia. Genitourinary: No dysuria, frequency, hematuria. Skin: No rash. Neuro: No headache, numbness, weakness. Physical Examination: Vitals: Stable. Afebrile. General: Well-nourished and well-developed. Head: Normocephalic atraumatic. Neck: Supple, no lymphadenopathy. No JVD. Nontender. Cardiovascular: Regular rate and rhythm. No murmurs. Respiratory: No respiratory distress. Clear to auscultation bilaterally. Abdominal: Soft, nontender, nondistended, normal bowel sounds. No guarding, rebound, or peritoneal signs. Back: Nontender. Extremities: Nontender, no edema. Track rothman in the left antecubital fossa with no evidence of infection. Skin: Normal color, no rash. Neurologic: Alert and oriented ?3. Cranial nerves II through XII are intact. Normal strength and sensation. Psych: Normal affect. Emergency Department Course and Treatment: Patient received Narcan by EMS on the way to the hospital. He is been observed over the course of an hour and 15 minutes and has remained awake and alert. Treatment Plan: Patient will be discharged instructions to follow-up with 180 as soon as possible. Disposition: To home in improved and stable condition. Impression: 1. Opiate overdose. This note was generated with [employer] dictation software. It may contain incorrect words, spelling, and punctuation that were not noted in review of the chart prior to signing ED Disposition - Plan for ED Patient: Chief Complaint: Overdose Instructions: ED Overdose Opiate Referrals: Kell Dover MD [Primary Care Provider] - EIGHTY,ONE [STAFF PHYSICIAN] - As soon as possible
[2017-10-08 00:28] VITALS: BP 110/64; PULSE 89; RESP 18; O2SAT 96
== END 2017-10-08 00:29 | disposition home or self-care (01) ==
LOC: ED 10-08 00:15
PROVIDERS: Emergency Provider Emergency Medicine; Family Provider Family Medicine; PCP Family Medicine
DX: T40.1X1A Poisoning by heroin, accidental (unintentional), initial encounter (principal); Y92.511 Restaurant or cafe as the place of occurrence of the external cause; F17.200 Nicotine dependence, unspecified, uncomplicated
CPT/HCPCS: 99285; J7030

== ENCOUNTER 2018-02-13 15:57 | Emergency (ER) | payer SELFPAY ==
[2018-02-13 15:58] VITALS: BP 126/81; PULSE 110; RESP 16; TEMP 36.7; O2SAT 99; BMI 20.3
--- NOTE | 2018-02-13 16:08 | ED.VISSUMM ---
- ER Visit Summary Date of Service: 02/13/18 Chief Complaint: Heroin overdose History of Present Illness: The patient is a 37 M who was found unresponsive today at his residence. He still had a needle in his arm. EMS gave 0.5 mg of Narcan and the patient awoke. He is now a and O x3. He states he feels nauseated and feels okay. He last used heroin about [address] any other street drugs. Denies any alcohol use. No primary care physician. No medications that he is prescribed or drug allergies. Physical Examination: Afebrile vital signs show slight tachycardia at 101 on my exam Gen: Well-nourished well-developed Head: Normocephalic atraumatic Eyes: Perrl EOMI (pupils 5-2 bilaterally) ENT: TMs clear no rhinorrhea moist mucous membranes Neck: Supple no lymphadenopathy no JVD nontender CVS: Regular rate rhythm no murmurs normal S1-S2 Respiratory: No distress clear to auscultation bilaterally chest nontender Abdomen: Soft nontender nondistended normal bowel sounds no masses Back: Nontender Extremity: Nontender no edema Skin: Normal color no rash Neuro: alert orientated ?3 CN II-XII intact normal strength sensation reflexes gait cerebellar Psych: Normal affect normal mood Emergency Department Course and Treatment: 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 He is a and O x3. He is ambulating normally. He understands the risk and can verbalize it back to me about leaving early before observational. His completed. I believe he has the capacity to make this decision. He will be referred to 180. Impression: 1. Opiate overdose 2. Left AMA This note was generated with [employer] dictation software. It may contain incorrect words, spelling, and punctuation that were not noted in review of the chart prior to signing ED Disposition - Plan for ED Patient: Disposition: Home or Assisted Living Chief Complaint: Overdose Instructions: ED Overdose Opiate Referrals: EIGHTY,ONE [STAFF PHYSICIAN] - As soon as possible
--- NOTE | 2018-02-13 16:11 | ED.RN ---
IV PLACED BY EMS REMOVED BY THIS RN.
[2018-02-13 16:12] VITALS: BP 119/103; PULSE 109; RESP 22; O2SAT 94
--- NOTE | 2018-02-13 16:12 | ED.DCSUM_ITS ---
- ER Visit Summary Date of Service: 02/13/18 Chief Complaint: Heroin overdose History of Present Illness: The patient is a 37 M who was found unresponsive today at his residence. He still had a needle in his arm. EMS gave 0.5 mg of Narcan and the patient awoke. He is now a and O x3. He states he feels n auseated and feels okay. He last used heroin about 5 days ago[address] Denies any other street drugs. Denies any alcohol use. No primary care physician. No medications that he is prescribed or drug allergies. Physical Examination: Afebrile vital signs show slight tachycardia at 101 on my exam Gen: Well-nourished well-developed Head: Normocephalic atraumatic Eyes: Perrl EOMI (pupils 5-2 bilaterally) ENT: TMs clear no rhinorrhea moist mucous membranes Neck: Supple no lymphadenopathy no JVD nontender CVS: Regular rate rhythm no murmurs normal S1-S2 Respiratory: No distress clear to auscultation bilaterally chest nontender Abdomen: Soft nontender nondistended normal bowel sounds no masses Back: Nontender Extremity: Nontender no edema Skin: Normal color no rash Neuro: alert orientated ?3 CN II-XII intact normal strength sensation reflexes gait cerebellar Psych: Normal affect normal mood Emergency Department Course and Treatment: 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 He is a and O x3. He is ambulating normally. He understands the risk and can verbalize it back to me about leaving early before observational. His completed. I believe he has the capacity to make this decision. He will be referred to 180. Impression: 1. Opiate overdose 2. Left AMA This note was generated with [employer] dictation software. It may contain incorrect words, spelling, and punctuation that were not noted in review of the chart prior to signing ED Disposition - Plan for ED Patient: Disposition: Home or Assisted Living Chief Complaint: Overdose Instructions: ED Overdose Opiate Referrals: EIGHTY,ONE [STAFF PHYSICIAN] - As soon as possible
== END 2018-02-13 16:16 | disposition left against medical advice (07) ==
PROVIDERS: Emergency Provider Emergency Medicine
DX: T40.1X1A Poisoning by heroin, accidental (unintentional), initial encounter (principal); Y92.009 Unspecified place in unspecified non-institutional (private) residence as the place of occurrence of the external cause; Z72.0 Tobacco use
CPT/HCPCS: 99284; J7030

== ENCOUNTER 2018-04-28 12:18 | Emergency (ER) | payer SELFPAY ==
[2018-04-28 12:19] VITALS: BP 145/80; PULSE 115; RESP 20; TEMP 36.4; O2SAT 99; BMI 20.9
--- NOTE | 2018-04-28 13:07 | ED.VISSUMM ---
- ER Visit Summary Date of Service: 04/28/18 Chief Complaint: Heroin withdrawal History of Present Illness: The patient is a 37 M who presents requesting detox from heroin withdrawal. Patient states he last used over 30 hours ago, yesterday morning. He injects and snorts heroin. He uses 1.5 g/day. He denies any other drug use and denies alcohol use. He is currently complaining of diarrhea, hot and cold sweats, rhinorrhea, nausea and vomiting, diffuse myalgias and arthralgias, tremulousness and anxiousness. He states he has overdosed 3 times in the past. He is seeking to stop using heroin. Physical Examination: Vital signs: afebrile, hemodynamically stable, tachycardic, no hypoxia on room air General: well nourished, well developed, in no distress Skin: warm, dry, no rash, no pallor, positive piloerection HEENT: normocephalic and atraumatic; PERRL, EOMI, moist mucous membranes Cardiovascular: Tachycardic rate and rhythm without murmurs, no peripheral edema, 2+ pulses all distal extremities Respiratory: No increased work of breathing, lungs are clear to auscultation bilaterally, no rales, rhonchi or wheezing Abdominal: Abdomen is soft, nontender with normoactive bowel sounds, no guarding or rebound, no masses MSK: Moves all extremities, no deformities, normal strength, tremulousness with arms outstretched Neuro: Awake and alert, oriented ?4. No facial droop, sensation and motor function intact and symmetric Test Results: [] Emergency Department Course and Treatment: Patient has a CINA score of 16. He was given Zofran and ibuprofen to help with symptoms. He was discussed with [facility], who evaluated him. Because patient does not currently have insurance, he cannot be admitted to [facility] at this time. They attempted to get instant Medicaid for him. [facility] also spoke with [facility], and a telecommunications sales representative from their was going to come evaluate the patient and get him into a detox program affiliated with them. While waiting for the 180 telecommunications sales representative, patient stated he did not want to wait any longer and had to go to work. He ambulated out of the department before I was able to talk to him and encourage him to stay, as we had a detox plan in place for him. Treatment Plan: [] Disposition: Left before treatment completed and without discharge paperwork Impression: Heroin withdrawal This note was generated with [employer] dictation software. It may contain incorrect words, spelling, and punctuation that were not noted in review of the chart prior to signing ED Disposition - Plan for ED Patient: Disposition: Home or Assisted Living Chief Complaint: Substance Abuse Referrals: Care Physician,No Primary [Primary Care Provider] -
[2018-04-28] MEDS: Ondansetron ODT 4 MG Tablet PO (13:44)
[2018-04-28] MEDS: Ibuprofen 600 MG Tablet PO (13:44)
--- NOTE | 2018-04-28 14:46 | ED.RN ---
[facility] has left at this time, pt was awaiting 180 to come discuss placement to different rehab facility. Pt states he does not want to go anywhere but [facility] and he does not have insurance. Pt states, I need to go to work, so I guess I'm going to have to go get high. Left message for [facility] and will call [facility].
--- NOTE | 2018-04-28 15:10 | ED.RN ---
Jahaira, social work, also aware pt leaving prior to speaking to 180. 180 was called by this RN.
== END 2018-04-28 15:05 | disposition left against medical advice (07) ==
PROVIDERS: Emergency Provider Emergency Medicine
DX: F11.23 Opioid dependence with withdrawal (principal); Z72.0 Tobacco use
CPT/HCPCS: 99283

== ENCOUNTER 2018-05-06 17:11 | Inpatient (IN) | payer MEDICAID, SELFPAY ==
[2018-05-06 17:12] VITALS: BP 98/77; PULSE 137; RESP 16; TEMP 36.4; O2SAT 100; BMI 20.9
--- NOTE | 2018-05-06 17:34 | ED.DCSUM_ITS ---
- ER Visit Summary Date of Service: 05/06/18 Chief Complaint: Detox History of Present Illness: The patient is a 37 M who presents requesting detox from heroin and fentanyl. He last used on the evening of May 04. He reports having hot and cold flashes, nausea and vomiting, along with difficulty focusing. He was seen here on April 29 for the same. At that time he was evaluated by [facility], but did not have Medicaid. He applied for coverage but was told it would take 2 days for that to kick in. Reportedly there was someone from [facility] coming to see the patient, but he eloped in the emergency room prior to them arriving. Patient states he went to the counseling center today to try to get help. They checked in his Medicaid is reportedly in effect. Physical Examination: Vital signs in triage include a blood pressure of 98/77, temperature 97.6, heart rate 137, respiratory rate 16, pulse ox 100% on room air. At the time of my examination blood pressure is 115/80 with a heart rate of 125. Patient is lying in bed. He is in no acute distress but does appear anxious and uncomfortable. Head neck examination grossly unremarkable. Heart is tachycardic and regular. Lungs sounds are clear. Abdomen is soft with no focal tenderness. Hypoactive bowel sounds are noted. External examination reveals puncture wounds from injecting drugs in his forearms. No sign of acute infection. Test Results: CBC was a white count 12.0 with 76% neutrophils. Chemistry studies grossly unremarkable. LFTs significant only for an ALT of 77 and AST of 50. EtOH is negative. Tox screen is positive for amphetamines. Emergency Department Course and Treatment: Patient was given IV fluids, Toradol, 0.5 mg of Ativan, and Zofran. Repeat vital signs at this time include a blood pressure of 114/80 and a heart rate of 92. See was score obtained on arrival is 14. Registration has verified the patient has active Medicaid insurance. Hospitalist will be contacted for admission. Treatment Plan: [] Disposition: Admit Impression: Opiate withdrawal requesting detox This note was generated with [employer] dictation software. It may contain incorrect words, spelling, and punctuation that were not noted in review of the chart prior to signing ED Disposition - Plan for ED Patient: Chief Complaint: Substance Abuse Referrals: Care Physician,No Primary [Primary Care Provider] -
[2018-05-06 17:48] VITALS: BP 110/82; PULSE 123; RESP 14; O2SAT 97
[2018-05-06 17:55] LABS: Absolute Lymphocyte Count 1.62 X10^3/ul (0.83-4.51); Absolute Neutrophil Count 9.1 X10^3/uL (2.0-7.7); Basophil# 0.01 X10^3/uL; Basophil% 0.1 % (0-1); Eosinophil# 0.06 X10^3/uL; Eosinophils% 0.5 % (0-5); Hematocrit 46.1 % (40-54); Hemoglobin 16.1 g/dl (13.0-16.5); Lymphocyte # 1.62 X10^3/ul (4.0); Lymphocyte % 13.5 % (19-41); Mean Corp Hgb Conc 34.9 g/gl (32-36); Mean Corpuscular Hgb 29.4 pg (27.0-32.0); Mean Corpuscular Volume 84.3 fL (80-94); Mean Platelet Vol. 10.3 fl (6.2-12.0); Monocyte# 1.12 X10^3/uL; Monocyte% 9.4 % (0-10); Neutrophil # 9.14 X10^3/uL (2.7-7.7); Neutrophil % 76.3 % (47-70); Platelet Count 237 K/mm3 (150-450); RBC Distribution Width CV 13.1 % (11.6-14.6); RBC Distribution Width SD 39.9 fl (35.1-43.9); Red Blood Count 5.47 M/mm3 (4.6-6.2)
[2018-05-06] MEDS: Ketorolac 30 MG/ML Syringe IV (17:56)
[2018-05-06] MEDS: LORazepam 2 MG/ML Syringe 0.5 MG IV (17:56)
[2018-05-06] MEDS: Ondansetron 4 MG/2 ML Vial IV (17:56)
[2018-05-06] MEDS: 0.9% Normal Saline 1,000 ML 1000 ML IV (17:56)
[2018-05-06 18:01] LABS: POSITIVE COUNT NO; POSITIVE DIFFERENTIAL NO; POSITIVE MORPHOLOGY NO
[2018-05-06 18:24] LABS: AST(SGOT) 50 U/L (15-37); Alanine Aminotransfer ALT/SGPT 77 U/L (16-61); Albumin, Serum 3.7 g/dL (3.2-5.0); Alkaline Phosphatase 70 U/L (45-117); Anion Gap 9 (5-15); BUN 7 mg/dL (7-18); BUN/Creat Ratio 6.3 RATIO (10-20); Bilirubin, Direct 0.17 mg/dL (0.00-0.30); Calcium,Total 8.9 mg/dL (8.5-10.1); Chloride 107 mmol/L (98-107); Creatinine, Serum 1.11 mg/dL (0.70-1.30); EST Glomerular Filtration Rate 78 mL/min (>60); Est Glom Filt Rate - Afr Amer 95 mL/min (>60); Estimated Creatinine Clearance 74.52 ml/min; Globulin 4.2 g/dL (2.2-4.2); Glucose 109 mg/dL (74-106); Potassium 3.6 mmol/L (3.5-5.1); Protein, Total 7.9 g/dL (6.4-8.2); Sodium Level 140 mmol/L (136-145)
--- NOTE | 2018-05-06 18:30 | CM.ED ---
SOCIAL WORK ASSESSMENT REFERRAL DATE: 05/06/18 DATE OF ASSESSMENT: 05/06/18 INFORMANT: PHYSICIAN REASON FOR CONSULT: SUBSTANCE ABUSE INFORMATION OBTAINED FROM: PATIENT LIVING ARRANGEMENTS: PT LIVES HOME ALONE IN AN APARTMENT EMPLOYMENT/FINANCIAL: PT RECENTLY LOST JOB AT [email or web address] DUE TO NO SHOWS. SUPPORTS: PT DOES HAVE GOOD SUPPORT FROM FAMILY. SOCIAL/FAMILY STRESSORS: PT WISHES TO STOP USING AND IS HOPING TO BE ADMITTED FOR DETOX. PT WAS IN LAST WEEK AND DID NOT HAVE INSURANCE FOR ADMISSION TO [facility]. PT NOW HAS MEDICAID. MENTAL HEALTH HX: PT ADMITS TO HX OF ANXIETY. SUBSTANCE ABUSE HX: PT REPORTS TO DAILY USE OF HEROIN- 2 GRAMS/DAY SUBSTANCE OF CHOICE: HEROIN, COCAINE, METH, MARIJUANA LAST USE: PT STATES LAST USE WAS FRIDAY NIGHT. HX OF TREATMENT: PT HAS PARTICIPATED IN OUTPT COUNSELING IN THE PAST. INTERVENTIONS: PT HAS INTAKE APPOINTMENT SCHEDULED WITH [facility] ON 05/12/18 AT 2P. THIS WORKER ATTEMPTED TO CALL AND VERIFY APPOINTMENT FOR PT. NO ANSWER, LEFT VOICEMAIL. ASSESSMENT: PT IS A 37 Y/O MALE WHO PRESENTS TO ED FOR DETOX. PT HAS BEEN USING 2 GRAMS OF HEROIN DAILY AND WISHES TO STOP USING. THIS WORKER INTRODUCED ROLE AND REASON FOR REFERRAL BY PHYSICIAN TO FOLLOW UP WITH PT REGARDING DETOX/TREATMENT. PT WAS IN LAST WEEK AND MET WITH A CONTRIBUTION SOLICITOR FROM [facility] AND WAS UNABLE TO BE ADMITTED D/T NO INSURANCE. PT HAS SINCE CALLED SHARED SERVICES AND IS NOW ACTIVE WITH MEDICAID. REGISTRATION HAS VERIFIED PT'S MEDICAID. PT HOPING TO BE ADMITTED TO [facility] THIS DAY. PT HAS APPOINTMENT WITH [facility] SCHEDULED FOR FRIDAY AT 2PM FOR INTAKE. PT OPEN TO TREATMENT OPTIONS AND STATES IS CONSIDERING INPATIENT TREATMENT. ALL OPTIONS DISCUSSED WITH PT. PT IS AFRAID IF NOT ADMITTED TO DETOX, HE WILL OVERDOSE. ACTIVE LISTENING AND SUPPORT PROVIDED TO PT. DISCUSSED WITH DR. PATE. AWAITING LAB RESULTS AT THIS TIME. THIS WORKER TO REMAIN AVAILABLE FOR ANY FURTHER NEEDS. PLAN: POSSIBLE ADMIT TO [facility].
[2018-05-06 18:32] LABS: Alcohol, Blood (Medical)-Serum < 3.0 mg/dL
[2018-05-06 19:50] LABS: Amphetamine Urine VISTA POSITIVE (<1000 ng/mL); Barbiturate Urine VISTA NEGATIVE (< 200 ng/mL); Benzodiazepine Urine VISTA NEGATIVE (< 200 ng/mL); Cocaine Urine VISTA NEGATIVE (< 300 ng/mL); Ecstacy Urine VISTA NEGATIVE (< 500 ng/mL); Methadone Urine VISTA NEGATIVE (< 300 ng/mL); PCP Urine VISTA NEGATIVE (< 25 ng/mL); THC Urine VISTA NEGATIVE (< 50 ng/mL); Vista UDS pH Range 6
[2018-05-06 19:56] VITALS: BMI 21.0
[2018-05-06] MEDS: 0.9% Normal Saline 1,000 ML 150 ML IV (20:20)
[2018-05-06 20:25] VITALS: BP 114/80; PULSE 92; RESP 16; O2SAT 99
[2018-05-06] MEDS: Nicotine Polacrilex 2 MG GUM PO (21:02)
[2018-05-06 21:06] VITALS: BP 105/61; PULSE 91; RESP 16; O2SAT 97
--- NOTE | 2018-05-06 21:18 | HP.PCM_ITS ---
Problem List (1) Opioid withdrawal delirium, acute, hyperactive Status: Acute (2) Polysubstance (including opioids) dependence, daily use Status: Chronic (3) Methamphetamine dependence Status: Chronic (4) Nicotine dependence Status: Chronic (5) Hepatitis C infection Status: Chronic History of Present Illness Date of Admission: 05/06/18 Chief Complaint: Opioid withdrawal symptoms for 2 days The patient is a 37 year old M with history of polysubstance use including opioids, fentanyl and heroin, 1.5 g daily, last use 05/04/2018 came to ER with withdrawal symptoms including feeling of hot and cold, diarrhea, aches and pain, anxiety, restlessness. Prior to that patient came to ER on 04/27/2018 and he signed AMA. Patient also has history of chronic hepatitis C. He was last admitted in February 2016 for unresponsiveness secondary to heroin overdose with acute hypoxic respiratory failure. Patient also has history of abscesses secondary to IV needle use. He also uses methamphetamine last use was 3 days ago [] Past Medical History Past Medical History (Chronic Problems): Chronic Problems (Last Reviewed 07/10/17 @ 14:38 by Cristina Perkins) Polysubstance (including opioids) dependence, daily use (Chronic) Methamphetamine dependence (Chronic) Nicotine dependence (Chronic) Hepatitis C infection (Chronic) Allergies Penicillins Allergy (Verified 04/28/18 12:22) Unknown tramadol [From Ultra] Adverse Reaction (Verified 04/28/18 12:22) Diarrhea Home Medications: Ambulatory Orders Medication Instructions Recorded NK 05/06/18 Surgical History: Surgical History (Last Updated 07/10/17 @ 14:38 by Cristina Perkins) History of cholecystectomy Z90.49 Smoking Status: Current every day smoker Tobacco Use: Cigarettes - *Family History Maternal History Items: No pertinent history Review of Systems Constitutional: Reports: Chills, Night Sweats, Malaise, Weakness, Fatigue HEENT: Denies: Head Aches, Sinus Congestion, Sinus Drainage Cardiovascular: Denies: Chest Pain, Palpitations Respiratory: Denies: Cough, Shortness of breath at rest, Sputum production Gastrointestinal: Reports: Diarrhea. Denies: Abdominal Pain, Nausea, Vomiting Genitourinary: Denies: Dysuria Musculoskeletal: Reports: Muscle pain. Denies: Joint Pain, Joint Tenderness Skin: Reports: Dryness, Skin Changes - Needle track rothman in both upper extremities. Small skin excoriation in the legs secondary to itching and picking. Denies: Rash, Wounds Neurological: Reports: Headaches. Denies: Focal weakness, Numbness, Tingling Psychiatric: Denies: Anxiety, Depression, Homicidal Ideations, Suicidal Ideations Hematologic/ Lymphatic: Denies: Easy Bruising, Easy Bleeding VTE Information - Inpt Only VTE Present on Admission: No VTE Mechan Device Prophylaxis: SCD's, None VTE Pharm Prophylaxis ordered?: No Reason prophylaxis not ordered:: Procedure Not Indicated - Early ambulation encouraged Patient Problems: Active and Suspected Problems (Last Reviewed 07/10/17 @ 14:38 by Cristina Perkins) Opioid withdrawal delirium, acute, hyperactive (Acute) - Physical Exam General: Alert, Oriented x3, Cooperative HEENT: Atraumatic, PERRLA, EOMI, Normocephalic Oral: Dry Mucosa Neck: Supple, No JVD, Negative Carotid Bruits Lungs: Clear to auscultation, Normal air movement, No rhonchi, No wheeze, No rales Cardiovascular: Regular rate, Regular Rhythm, Normal S1, Normal S2, No murmurs Abdomen: Bowel Sounds Present, Soft, Non Tender, Non-Distended Extremities: No edema, Capillary Refill Less than 3 Seconds Skin: No rashes, No breakdown Musculoskeletal: No Tenderness to Palpation of Joints or Extremities, Arthritic Changes Lymphatic: No Cervical, Supraclavicular, or Inguinal Adenopathy Neurological: Cranial nerves II-XII grossly intact, Deep Tendon Reflexes 2+/4 and Symmetrical, Neuro grossly intact Psych/Mental Status: Anxious, Restless Vital Signs Temp Pulse Resp BP Pulse Ox 97.6 F L 91 16 105/61 97 05/06/18 17:12 05/06/18 21:06 05/06/18 21:06 05/06/18 21:06 05/06/18 21:06 Oxygen Delivery Method Room Air Weight: 130 lb Body Mass Index (BMI) 20.9 Laboratory Tests Past 24 Hrs 05/06/18 05/06/18 05/06/18 17:47 17:47 17:47 WBC 12.0 H RBC 5.47 Hgb 16.1 Hct 46.1 MCV 84.3 MCH 29.4 MCHC 34.9 RDW 13.1 RDW Differential 39.9 Plt Count 237 MPV 10.3 Immature Gran % (Auto) 0.200 Neut % (Auto) 76.3 H Lymph % (Auto) 13.5 L Hemphill % (Auto) 9.4 Eos % (Auto) 0.5 Baso % (Auto) 0.1 Absolute Neuts (auto) 9.1 H Absolute Lymphs (auto) 1.62 Total Counted Not Reportable Sodium 140 Potassium 3.6 Chloride 107 Carbon Dioxide 24.0 Anion Gap 9 BUN 7 Creatinine 1.11 Estim Creat Clear Calc 74.52 Est GFR (MDRD) Af Amer 95 Est GFR (MDRD) Non-Af 78 BUN/Creatinine Ratio 6.3 L Glucose 109 H Calcium 8.9 Total Bilirubin 0.50 Direct Bilirubin 0.17 AST 50 H ALT 77 H Alkaline Phosphatase 70 Total Protein 7.9 Albumin 3.7 Globulin 4.2 Urine Opiates Screen Urine Methadone Screen Ur Barbiturates Screen Ur Phencyclidine Scrn Ur Amphetamines Screen U Methamphetamin-MDMA U Benzodiazepines Scrn Urine Cocaine Screen U Cannabinoids Screen Ur Drug Screen Comment Ethyl Alcohol < 3.0 05/06/18 18:40 WBC RBC Hgb Hct MCV MCH MCHC RDW RDW Differential Plt Count MPV Immature Gran % (Auto) Neut % (Auto) Lymph % (Auto) Hemphill % (Auto) Eos % (Auto) Baso % (Auto) Absolute Neuts (auto) Absolute Lymphs (auto) Total Counted Sodium Potassium Chloride Carbon Dioxide Anion Gap BUN Creatinine Estim Creat Clear Calc Est GFR (MDRD) Af Amer Est GFR (MDRD) Non-Af BUN/Creatinine Ratio Glucose Calcium Total Bilirubin Direct Bilirubin AST ALT Alkaline Phosphatase Total Protein Albumin Globulin Urine Opiates Screen NEGATIVE Urine Methadone Screen NEGATIVE Ur Barbiturates Screen NEGATIVE Ur Phencyclidine Scrn NEGATIVE Ur Amphetamines Screen POSITIVE H U Methamphetamin-MDMA NEGATIVE U Benzodiazepines Scrn NEGATIVE Urine Cocaine Screen NEGATIVE U Cannabinoids Screen NEGATIVE Ur Drug Screen Comment Ethyl Alcohol Assessment/Plan All Active Problems (Last Reviewed 07/10/17 @ 14:38 by Cristina Perkins) Opioid withdrawal delirium, acute, hyperactive (Acute) The patient is a 37 year old M with history of polysubstance use including opioids, fentanyl and heroin, 1.5 g daily, last use 05/04/2018 came to ER with withdrawal symptoms including feeling of hot and cold, diarrhea, aches and pain, anxiety, restlessness. Prior to that patient came to ER on 04/27/2018 and he signed AMA. Patient also has history of chronic hepatitis C. He was last admitted in February 2016 for unresponsiveness secondary to heroin overdose with acute hypoxic respiratory failure. Patient also has history of abscesses secondary to IV needle use. Denies any recent abscesses or incision and drainage. Denies benzodiazepine use including Xanax, Valium and Klonopin He also uses methamphetamine last use was 3 days ago 1. Acute opioid withdrawal, with fentanyl and heroin mixture chronic use and dependence: The patient is being admitted on regular MedSurg floor. Patient is very dry secondary to diarrhea. Patient is on second liter IV fluid normal saline bolus. After that, fluid normal saline 150 mL per hour for 1 L and then reevaluate. On order set protocol for the [facility] for medical stabilization of opioid withdrawal 2. Acute dehydration secondary to diarrhea due to polysubstance use: IV fluid normal saline as mentioned above Methamphetamine use and dependence: 3. Chronic nicotine use, smoking cigarettes dependence: Nicotine patch 4. Mildly elevated transaminases due to chronic hepatitis C: Outpatient evaluation and management 5. DVT prophylaxis: Early ambulation encouraged. Code Visit Inpatient E&M: 56793 Init Hosp L3
[2018-05-06 21:56] VITALS: BMI 19.5; BMI 19.6
[2018-05-06 22:15] VITALS: BP 110/66; PULSE 77; RESP 20; TEMP 36.9; O2SAT 99
[2018-05-06 22:19] VITALS: BP 110/66; PULSE 77; RESP 20; TEMP 36.9
[2018-05-06] MEDS: traZODone 50 MG Tablet PO (22:31)
[2018-05-06] MEDS: chlordiazePOXIDE 25 MG Capsule PO (22:32)
[2018-05-06] MEDS: Buprenorphine HCl 2 MG TAB.SUBL SL (22:32)
[2018-05-06 23:04] LABS: Amylase 33 U/L (25-115); Lipase 98 U/L (73-393)
[2018-05-06] MEDS: Ibuprofen 600 MG Tablet PO (23:19)
[2018-05-06] MEDS: Pramipexole Di-HCl 0.25 MG Tablet PO (23:20)
[2018-05-07] VITALS (8 sets, daily range): BP systolic 100–138; BP diastolic 56–81; PULSE 59–107; RESP 16–20; TEMP 36.6–36.7
[2018-05-07] MEDS: chlordiazePOXIDE 25 MG Capsule PO ×5 (02:14→17:25)
[2018-05-07] MEDS: hydrOXYzine PAM 25 MG Capsule 50 MG PO (02:14)
[2018-05-07] MEDS: Loperamide 2 MG Capsule PO (02:14)
[2018-05-07] MEDS: cloNIDine HCl 0.1 MG Tablet PO (02:14)
[2018-05-07] MEDS: Buprenorphine HCl 2 MG TAB.SUBL SL ×3 (05:23→22:32)
[2018-05-07] MEDS: Methocarbamol 750 MG Tablet PO ×2 (05:23→14:18)
--- NOTE | 2018-05-07 07:14 | PCM.PN.HOSP ---
Patient Problems: Active and Suspected Problems (Last Reviewed 07/10/17 @ 14:38 by Cristina Perkins) Opioid withdrawal delirium, acute, hyperactive (Acute) Subjective: And was seen and examined. ED denied any more diarrhea. Has some nausea but no vomiting. He complains of some hot and cold flashes. Has cramps in his legs. Patient was seen earlier, discussion held on being medicated with his as needed medication. Patient reportedly told the nurse later on that he had not seen his physician around. I went back to see him and address concerns. He is asked him for an increased dose of Subutex. He has been refusing his as needed medications to address his opiate withdrawal. No other acute events overnight. Vitals/I&O's: Vital Signs Temp Pulse Resp BP Pulse Ox 98 F 68 18 115/74 99 05/07/18 05:18 05/07/18 05:18 05/07/18 05:18 05/07/18 05:18 05/06/18 22:15 Oxygen Delivery Method Room Air Weight: 55 kg Body Mass Index (BMI) 19.5 Intake and Output for Last 24 Hours 05/05/18 05/06/18 05/07/18 23:59 23:59 23:59 Intake Total 2800 / 2800 Balance 2800 / 2800 General: Alert, Oriented x3, Cooperative, No apparent distress HEENT: Atraumatic, PERRLA, EOMI, Normocephalic Neck: Supple, No JVD, Negative Carotid Bruits Lungs: Clear to auscultation, Normal air movement Cardiovascular: Regular rate, Regular Rhythm, Normal S1, Normal S2, No murmurs Abdomen: Bowel Sounds Present, Soft, Non Tender Extremities: No edema, Capillary Refill Less than 3 Seconds Skin: No rashes, No breakdown Musculoskeletal: No Tenderness to Palpation of Joints or Extremities Lymphatic: No Cervical, Supraclavicular, or Inguinal Adenopathy Neurological: Cranial nerves II-XII grossly intact Psych/Mental Status: Normal Affect, Anxious, Restless Laboratory Results 05/06/18 17:47: WBC 12.0 H, RBC 5.47, Hgb 16.1, Hct 46.1, MCV 84.3, MCH 29.4, MCHC 34.9, RDW 13.1, RDW Differential 39.9, Plt Count 237, MPV 10.3, Immature Gran % (Auto) 0.200, Neut % (Auto) 76.3 H, Lymph % (Auto) 13.5 L, Carter % (Auto) 9.4, Eos % (Auto) 0.5, Baso % (Auto) 0.1, Absolute Neuts (auto) 9.1 H, Absolute Lymphs (auto) 1.62, Total Counted Not Reportable 05/06/18 17:47: Sodium 140, Potassium 3.6, Chloride 107, Carbon Dioxide 24.0, Anion Gap 9, BUN 7, Creatinine 1.11, Estim Creat Clear Calc 74.52, Est GFR (MDRD) Af Amer 95, Est GFR (MDRD) Non-Af 78, BUN/Creatinine Ratio 6.3 L, Glucose 109 H, Calcium 8.9, Total Bilirubin 0.50, Direct Bilirubin 0.17, AST 50 H, ALT 77 H, Alkaline Phosphatase 70, Total Protein 7.9, Albumin 3.7, Globulin 4.2 05/06/18 17:47: Ethyl Alcohol < 3.0 05/06/18 17:47: Amylase 33, Lipase 98 05/06/18 17:47: PT 13.0, INR 1.0 05/06/18 18:40: Urine Opiates Screen NEGATIVE, Urine Methadone Screen NEGATIVE, Ur Barbiturates Screen NEGATIVE, Ur Phencyclidine Scrn NEGATIVE, Ur Amphetamines Screen POSITIVE H, U Methamphetamin-MDMA NEGATIVE, U Benzodiazepines Scrn NEGATIVE, Urine Cocaine Screen NEGATIVE, U Cannabinoids Screen NEGATIVE, Ur Drug Screen Comment Current Medications Al Hydroxide/Mg Hydroxide (Mylanta Ii) 30 ml PO Q6H PRN PRN PRN Reason: dyspesia Buprenorphine HCl (Buprenorphine Hcl) 4 mg SL Q8H IRENE; Taper Stop: 05/10/18 01:59 Last Admin: 05/07/18 05:23 Dose: 4 mg Chlordiazepoxide (Librium) 25 mg PO Q6H PRN PRN PRN Reason: Moderate-Severe Anxiety Chlordiazepoxide (Librium) 25 mg PO Q4H IRENE Stop: 05/07/18 18:01 Last Admin: 05/07/18 05:23 Dose: 25 mg Clonidine (Catapres) 0.1 mg PO Q2H PRN PRN PRN Reason: Hot/Cold Sweats or Anxiety Last Admin: 05/07/18 02:14 Dose: 0.1 mg Dicyclomine HCl (Bentyl) 20 mg PO Q6H PRN PRN PRN Reason: Abdomnial Discomfort Hydroxyzine HCl (Vistaril Vial) 50 mg IM Q6H PRN PRN PRN Reason: Breakthrough Anxiety Hydroxyzine Pamoate (Vistaril Pamoate Capsule) 50 mg PO Q6H PRN PRN PRN Reason: Mild Anxiety Last Admin: 05/07/18 02:14 Dose: 50 mg Ibuprofen (Motrin) 600 mg PO Q8H PRN PRN PRN Reason: Mild-Moderate Pain (1-5/10) Last Admin: 05/06/18 23:19 Dose: 600 mg Loperamide HCl (Imodium) 2 - 4 mg PO UD PRN PRN Reason: LOOSE STOOLS Last Admin: 05/07/18 02:14 Dose: 4 mg Methocarbamol (Methocarbamol) 750 mg PO Q6H PRN PRN PRN Reason: Muscle Aches Last Admin: 05/07/18 05:23 Dose: 750 mg Nicotine (Nicoderm Cq (Pbkc)) 21 mg TRANSDERM. DAILY [facility] Nutritional Formula (Lactose Free) (Ensure Enlive) 120 ml PO 4X/DAY [facility] Ondansetron HCl (Zofran Odt) 4 mg PO Q6H PRN PRN PRN Reason: NAUSEA Pramipexole Dihydrochloride (Mirapex) 0.25 mg PO Q12H PRN PRN PRN Reason: Restless Legs Last Admin: 05/06/18 23:20 Dose: 0.25 mg Senna (Senokot) 1 tablet PO QHS PRN PRN Reason: Constipation Sodium Chloride () 5 - 15 ml IV UD PRN PRN Reason: SALINE FLUSH Trazodone HCl (Desyrel) 50 mg PO QHS IRENE Last Admin: 05/06/18 22:31 Dose: 50 mg Medical Necessity - Tobacco Use Smoking Status: Current every day smoker Tobacco Use: Cigarettes Assessment/Plan All Active Problems (Last Reviewed 07/10/17 @ 14:38 by Cristina Perkins) Opioid withdrawal delirium, acute, hyperactive (Acute) 37-year-old male with past medical history of chronic hepatitis C, polysubstance use including opiates fentanyl or heroin, 1.5 g daily comes in with hot and cold flashes, diarrhea, aches and pains, anxiety. He last used heroin on 120 2089. Patient is hoping to be medically stabilized 100 and [facility] protocol. 1. Acute opiate withdrawal, in a known opiates-fentanyl, heroin user, refuses to use as needed medications, advised to continue with the protocol, continue to monitor 2. Acute gastroenteritis, resolved 3. Chronic Hepatitis C, needs to follow-up in the outpatient 4. Nicotine dependence, advised to quit, on replacement. 5. Polysubstance use, advised to quit 6. DVT rophylaxis with early ambulation Code Visit Inpatient E&M: 80224 Subs Hosp L2
--- NOTE | 2018-05-07 11:04 | CM.ED ---
SOCIAL WORK NOTE RECEIVED CALL BACK FROM ROD AT [facility]. PER ROD, PT DOES HAVE INTAKE APPOINTMENT SCHEDULED FOR 05/12/18 AT 2PM.
--- NOTE | 2018-05-07 12:27 | NURSING ---
PT HAS BEEN REFUSING ALL PRN MEDS FOR WITHDRAWAL SYMPTOMS. PT ASKED DR. LUIS IF SHE COULD UP HIS SUBUTEX BY [facility] BECAUSE THAT IS THE ONLY THING THAT WORKS.WHEN INFORMED THAT SHE COULD NOT, PT THEN STATED HE was tired and just wanted to rest.
[2018-05-07] MEDS: Pramipexole Di-HCl 0.25 MG Tablet PO (14:18)
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
[2018-05-07] MEDS: traZODone 50 MG Tablet PO (22:32)
[2018-05-08] MEDS: Buprenorphine HCl 2 MG TAB.SUBL SL ×2 (06:04→14:26)
[2018-05-08 06:09] VITALS: BP 114/67; PULSE 92; RESP 16; TEMP 36.7
--- NOTE | 2018-05-08 07:36 | PCM.PN.HOSP ---
Patient Problems: Active and Suspected Problems (Last Reviewed 07/10/17 @ 14:38 by Cristina Perkins) Opioid withdrawal delirium, acute, hyperactive (Acute) Subjective: Patient was seen and examined. He complains of restless legs. Denies nausea or vomiting or fever or chills. ROS is negative. He feels he is improving. Objective: Physical exam: General: Alert, Oriented x3, Cooperative, No apparent distress HEENT: Atraumatic, PERRLA, EOMI, Normocephalic Neck: Supple, No JVD, Negative Carotid Bruits Lungs: Clear to auscultation, Normal air movement Cardiovascular: Regular rate, Regular Rhythm, Normal S1, Normal S2, No murmurs Abdomen: Bowel Sounds Present, Soft, Non Tender Extremities: No edema, Capillary Refill Less than 3 Seconds Skin: No rashes, No breakdown Musculoskeletal: No Tenderness to Palpation of Joints or Extremities Lymphatic: No Cervical, Supraclavicular, or Inguinal Adenopathy Neurological: Cranial nerves II-XII grossly intact Psych/Mental Status: Normal Affect, Anxious, Restless Vitals/I&O's: Vital Signs Temp Pulse Resp BP Pulse Ox 98.1 F 92 16 114/67 99 05/08/18 06:09 05/08/18 06:09 05/08/18 06:09 05/08/18 06:09 05/06/18 22:15 Oxygen Delivery Method Room Air Weight: 55 kg Body Mass Index (BMI) 19.5 Intake and Output for Last 24 Hours 05/06/18 05/07/18 05/08/18 23:59 23:59 23:59 Intake Total 2800 / 2800 400 / 400 Balance 2800 / 2800 400 / 400 Current Medications Al Hydroxide/Mg Hydroxide (Mylanta Ii) 30 ml PO Q6H PRN PRN PRN Reason: dyspesia Buprenorphine HCl (Buprenorphine Hcl) 2 mg SL Q8H IRENE; Taper Stop: 05/10/18 01:59 Last Admin: 05/08/18 06:04 Dose: 2 mg Chlordiazepoxide (Librium) 25 mg PO Q6H PRN PRN PRN Reason: Moderate-Severe Anxiety Clonidine (Catapres) 0.1 mg PO Q2H PRN PRN PRN Reason: Hot/Cold Sweats or Anxiety Last Admin: 05/07/18 02:14 Dose: 0.1 mg Dicyclomine HCl (Bentyl) 20 mg PO Q6H PRN PRN PRN Reason: Abdomnial Discomfort Hydroxyzine HCl (Vistaril Vial) 50 mg IM Q6H PRN PRN PRN Reason: Breakthrough Anxiety Hydroxyzine Pamoate (Vistaril Pamoate Capsule) 50 mg PO Q6H PRN PRN PRN Reason: Mild Anxiety Last Admin: 05/07/18 02:14 Dose: 50 mg Ibuprofen (Motrin) 600 mg PO Q8H PRN PRN PRN Reason: Mild-Moderate Pain (1-5/10) Last Admin: 05/06/18 23:19 Dose: 600 mg Loperamide HCl (Imodium) 2 - 4 mg PO UD PRN PRN Reason: LOOSE STOOLS Last Admin: 05/07/18 02:14 Dose: 4 mg Methocarbamol (Methocarbamol) 750 mg PO Q6H PRN PRN PRN Reason: Muscle Aches Last Admin: 05/07/18 14:18 Dose: 750 mg Nicotine (Nicoderm Cq (Pbkc)) 21 mg TRANSDERM. DAILY [facility] Last Admin: 05/07/18 10:36 Dose: 21 mg Nutritional Formula (Lactose Free) (Ensure Enlive) 120 ml PO 4X/DAY [facility] Last Admin: 05/07/18 22:32 Dose: 120 ml Ondansetron HCl (Zofran Odt) 4 mg PO Q6H PRN PRN PRN Reason: NAUSEA Pramipexole Dihydrochloride (Mirapex) 0.25 mg PO Q12H PRN PRN PRN Reason: Restless Legs Last Admin: 05/07/18 14:18 Dose: 0.25 mg Senna (Senokot) 1 tablet PO QHS PRN PRN Reason: Constipation Sodium Chloride () 5 - 15 ml IV UD PRN PRN Reason: SALINE FLUSH Trazodone HCl (Desyrel) 50 mg PO QHS [facility] Last Admin: 05/07/18 22:32 Dose: 50 mg Medical Necessity - Tobacco Use Smoking Status: Current every day smoker Tobacco Use: Cigarettes Assessment/Plan All Active Problems (Last Reviewed 07/10/17 @ 14:38 by Cristina Perkins) Opioid withdrawal delirium, acute, hyperactive (Acute) 37-year-old male with past medical history of chronic hepatitis C, polysubstance use including opiates fentanyl or heroin, 1.5 g daily comes in with hot and cold flashes, diarrhea, aches and pains, anxiety. He last used heroin on 120 2089. Patient is hoping to be medically stabilized 100 and [facility] protocol. 1. Acute opiate withdrawal, improving, will continue on [facility] protocol 2. Acute gastroenteritis, resolved 3. Chronic Hepatitis C, needs to follow-up in the outpatient 4. Nicotine dependence, advised to quit, on replacement. 5. Polysubstance use, advised to quit 6. DVT prophylaxis with early ambulation Code Visit Inpatient E&M: 25410 Subs Hosp L2
[2018-05-08] MEDS: Methocarbamol 750 MG Tablet PO (09:15)
[2018-05-08] MEDS: Pramipexole Di-HCl 0.25 MG Tablet PO (09:15)
[2018-05-08 11:00] VITALS: BP 111/71; PULSE 87; RESP 16; TEMP 37.1
[2018-05-08 14:32] VITALS: BP 115/74; PULSE 94; RESP 18; TEMP 36.8; O2SAT 98
[2018-05-08 16:09] VITALS: BP 107/75; PULSE 90; RESP 18; TEMP 37.1
[2018-05-08] MEDS: Loperamide 2 MG Capsule PO (16:17)
[2018-05-08] MEDS: chlordiazePOXIDE 25 MG Capsule PO (16:17)
[2018-05-08] MEDS: cloNIDine HCl 0.1 MG Tablet PO (16:18)
[2018-05-08] MEDS: traZODone 50 MG Tablet PO (23:00)
[2018-05-08 23:58] VITALS: BP 111/71; PULSE 72; RESP 16; TEMP 36.7
[2018-05-09] MEDS: Buprenorphine HCl 2 MG TAB.SUBL SL ×2 (03:19→14:45)
--- NOTE | 2018-05-09 08:20 | DCINST_ITS ---
- Discharge Diagnoses Current Active Problems: Current Active and Chronic Problems (Last Reviewed 07/10/17 @ 14:38 by Cristina Perkins) Opioid withdrawal delirium, acute, hyperactive (Acute) Polysubstance (including opioids) dependence, daily use (Chronic) Methamphetamine dependence (Chronic) Nicotine dependence (Chronic) Hepatitis C infection (Chronic) Reason(s) for Visit for Discharge Instructions: Acute opiate withdrawal You will use the following diet at home:: Regular Your food should be the consistency of: Regular Your liquids should be the consistency of: Regular/Thin Discharge Activity: Return to Normal Activity Additional Instructions: You are strongly advised to quit smoking as well as using illict drugs. Follow-up with your outpatient program as scheduled. Allergies/Adverse Reactions: Allergies Penicillins Allergy (Verified 05/06/18 21:59) Unknown Pt is unsure of reaction; states it was a long time ago. tramadol [From Ultram] Adverse Reaction (Verified 05/06/18 21:59) sweats, shakes Medications to take at Discharge Ensure Enlive 120 ml PO 4X/DAY #100 liquid 05/09/18 The following prescriptions were given: Ensure Enlive 120 ml PO 4X/DAY #100 liquid Primary Care Physician: Care Physician,No Primary [Primary Care Provider] - Please follow up with your Primary Care Physician in: within 1-2 weeks Test Results: Test results from this visit will be discussed in further detail at your follow- up appointment, if applicable. Proposed Discharge Date: 05/09/18
--- NOTE | 2018-05-09 08:23 | DS.PCM_ITS ---
Discharge Date and Diagnosis - Problem List Patient Problems: Active and Suspected Problems (Last Reviewed 07/10/17 @ 14:38 by Cristina Perkins) Opioid withdrawal delirium, acute, hyperactive (Acute) Date of Admission: 05/06/18 Date of Discharge: 05/10/18 - Primary Discharge Diagnosis Active and Suspected Problems (Last Reviewed 07/10/17 @ 14:38 by Cristina Perkins) 1. Opioid withdrawal, acute, hyperactive (Acute) 2. Severe protein malnutrition 3. Acute gastroenteritis 4. Nicotine dependence 5. Polysubstance use - Secondary Discharge Diagnosis Chronic Problems (Last Reviewed 07/10/17 @ 14:38 by Cristina Perkins) Polysubstance (including opioids) dependence, daily use (Chronic) Methamphetamine dependence (Chronic) Nicotine dependence (Chronic) Hepatitis C infection (Chronic) Hospital Course and Treatment None Operations: None Procedures: None Summary of Care Provided: The patient is a 37 year old M with PMhx of polysubstance use, heroin, nicotine dependence who comes in with feeling hot and cold flushes, generalised aches, pain, restlessness for medical stabilization under the [facility] protocol. Patient improved on the protocol and was discharged home. Patient was kept an extra day because he complains of generalized aches with no feeling well. Rep eat blood work showed no electrolyte imbalances. No acute events overnight. He requested for specific medications to be given and when it was felt not to be appropriate for his care he refused other as needed medications. He was discharged to continue with the outpatient program in a stable state. Patient Problems: Active and Suspected Problems (Last Reviewed 07/10/17 @ 14:38 by Cristina Perkins) Opioid withdrawal delirium, acute, hyperactive (Acute) Subjective: Patient was seen and examined. No acute events overnight. - Physical Exam General: Alert, Oriented x3, Cooperative, No apparent distress HEENT: Atraumatic, PERRLA, EOMI, Normocephalic Oral: Moist Mucosa Neck: Supple, No JVD, Negative Carotid Bruits Lungs: Clear to auscultation, Normal air movement Cardiovascular: Regular rate, Regular Rhythm, Normal S1, Normal S2, No murmurs Abdomen: Bowel Sounds Present, Soft, Non Tender, Non-Distended, No Hepato- splenomegaly, Passing Flatus Extremities: No edema Skin: No rashes, No breakdown Musculoskeletal: No Tenderness to Palpation of Joints or Extremities Lymphatic: No Cervical, Supraclavicular, or Inguinal Adenopathy Neurological: Cranial nerves II-XII grossly intact, Neuro grossly intact Psych/Mental Status: Normal Affect, Appropriate Vital Signs Temp Pulse Resp BP Pulse Ox 98.1 F 72 16 111/71 98 05/08/18 23:58 05/08/18 23:58 05/08/18 23:58 05/08/18 23:58 05/08/18 14:32 Oxygen Delivery Method Room Air Weight: 55 kg Body Mass Index (BMI) 19.5 Intake and Output for Last 24 Hours 05/07/18 05/08/18 05/09/18 23:59 23:59 23:59 Intake Total 2800 / 2800 1750 / 1750 440 / 440 Balance 2800 / 2800 1750 / 1750 440 / 440 Discharge Diet: No Restrictions Discharge Activity: Return to Normal Activity Home Medications: Medications to take at Discharge Ensure Enlive 120 ml PO 4X/DAY #100 liquid 05/09/18 Following Prescrptions Were Given to Patient: Ensure Enlive 120 ml PO 4X/DAY #100 liquid Primary Care Physician: Care Physician,No Primary [Primary Care Provider] - Please follow up with your Primary Care Physician in: within 1-2 weeks Disposition: Home Minutes spent on discharge:: 35 Patient Condition:: Stable Medical Necessity - Tobacco Use Smoking Status: Current every day smoker Tobacco Use: Cigarettes Meaningful Use Info Meaningful Use Diagnoses (Choose all that apply): None applicable Code Visit Inpatient E&M: 56812 Disch Hosp
[2018-05-09 09:14] VITALS: BP 107/66; PULSE 86; RESP 18; TEMP 36.8
[2018-05-09] MEDS: Methocarbamol 750 MG Tablet PO ×2 (09:24→14:59)
[2018-05-09] MEDS: Dicyclomine 10 MG Capsule 20 MG PO (09:24)
[2018-05-09] MEDS: Ibuprofen 600 MG Tablet PO (09:24)
[2018-05-09] MEDS: Pramipexole Di-HCl 0.25 MG Tablet PO (09:25)
[2018-05-09] MEDS: cloNIDine HCl 0.1 MG Tablet PO (09:25)
[2018-05-09] MEDS: Loperamide 2 MG Capsule PO (12:26)
[2018-05-09] MEDS: chlordiazePOXIDE 25 MG Capsule PO (12:26)
[2018-05-09 14:48] VITALS: BP 96/58; PULSE 88; RESP 16; TEMP 36.7; O2SAT 98
--- NOTE | 2018-05-09 15:19 | PN_ITS ---
Patient Problems: Active and Suspected Problems (Last Reviewed 07/10/17 @ 14:38 by Cristina Perkins) Opioid withdrawal delirium, acute, hyperactive (Acute) Subjective: Patient was seen and examined. Complains of generalised aches, feeling very weak, hot and cold flushes, diarrhea. Denies fever or chills, chest pain, dizziness. ROS is negative. Objective: Physical exam: General: Alert, Oriented x3, Cooperative, appears unwell HEENT: Atraumatic, PERRLA, EOMI, Normocephalic Neck: Supple, No JVD, Negative Carotid Bruits Lungs: Clear to auscultation, Normal air movement Cardiovascular: Regular rate, Regular Rhythm, Normal S1, Normal S2, No murmurs Abdomen: Bowel Sounds Present, Soft, Non Tender Extremities: No edema, Capillary Refill Less than 3 Seconds Skin: No rashes, No breakdown Musculoskeletal: No Tenderness to Palpation of Joints or Extremities Lymphatic: No Cervical, Supraclavicular, or Inguinal Adenopathy Neurological: Cranial nerves II-XII grossly intact Psych/Mental Status: Normal Affect, Anxious, Restless Vitals/I&O's: Vital Signs Temp Pulse Resp BP Pulse Ox 98.0 F 88 16 96/58 L 98 05/09/18 14:48 05/09/18 14:48 05/09/18 14:48 05/09/18 14:48 05/09/18 14:48 Oxygen Delivery Method Room Air Weight: 55 kg Body Mass Index (BMI) 19.5 Intake and Output for Last 24 Hours 05/07/18 05/08/18 05/09/18 23:59 23:59 23:59 Intake Total 2800 / 2800 1750 / 1750 890 / 890 Balance 2800 / 2800 1750 / 1750 890 / 890 Current Medications Al Hydroxide/Mg Hydroxide (Mylanta Ii) 30 ml PO Q6H PRN PRN PRN Reason: dyspesia Buprenorphine HCl (Buprenorphine Hcl) 2 mg SL Q12H IRENE; Taper Stop: 05/10/18 01:59 Last Admin: 05/09/18 14:45 Dose: 2 mg Chlordiazepoxide (Librium) 25 mg PO Q6H PRN PRN PRN Reason: Moderate-Severe Anxiety Last Admin: 05/09/18 12:26 Dose: 25 mg Clonidine (Catapres) 0.1 mg PO Q2H PRN PRN PRN Reason: Hot/Cold Sweats or Anxiety Last Admin: 05/09/18 09:25 Dose: 0.1 mg Dicyclomine HCl (Bentyl) 20 mg PO Q6H PRN PRN PRN Reason: Abdomnial Discomfort Last Admin: 05/09/18 09:24 Dose: 20 mg Hydroxyzine HCl (Vistaril Vial) 50 mg IM Q6H PRN PRN PRN Reason: Breakthrough Anxiety Hydroxyzine Pamoate (Vistaril Pamoate Capsule) 50 mg PO Q6H PRN PRN PRN Reason: Mild Anxiety Last Admin: 05/07/18 02:14 Dose: 50 mg Ibuprofen (Motrin) 600 mg PO Q8H PRN PRN PRN Reason: Mild-Moderate Pain (1-5/10) Last Admin: 05/09/18 09:24 Dose: 600 mg Loperamide HCl (Imodium) 2 - 4 mg PO UD PRN PRN Reason: LOOSE STOOLS Last Admin: 05/09/18 12:26 Dose: 2 mg Methocarbamol (Methocarbamol) 750 mg PO Q6H PRN PRN PRN Reason: Muscle Aches Last Admin: 05/09/18 14:59 Dose: 750 mg Nicotine (Nicoderm Cq (Pbkc)) 21 mg TRANSDERM. DAILY [facility] Last Admin: 05/09/18 09:23 Dose: 21 mg Nutritional Formula (Lactose Free) (Ensure Enlive) 120 ml PO 4X/DAY [facility] Last Admin: 05/09/18 14:45 Dose: 120 ml Ondansetron HCl (Zofran Odt) 4 mg PO Q6H PRN PRN PRN Reason: NAUSEA Pramipexole Dihydrochloride (Mirapex) 0.25 mg PO Q12H PRN PRN PRN Reason: Restless Legs Last Admin: 05/09/18 09:25 Dose: 0.25 mg Senna (Senokot) 1 tablet PO QHS PRN PRN Reason: Constipation Sodium Chloride () 5 - 15 ml IV UD PRN PRN Reason: SALINE FLUSH Trazodone HCl (Desyrel) 50 mg PO QHS [facility] Last Admin: 05/08/18 23:00 Dose: 50 mg Medical Necessity - Tobacco Use Smoking Status: Current every day smoker Tobacco Use: Cigarettes Assessment/Plan All Active Problems (Last Reviewed 07/10/17 @ 14:38 by Cristina Perkins) Opioid withdrawal delirium, acute, hyperactive (Acute) 37-year-old male with past medical history of chronic hepatitis C, polysubstance use including opiates fentanyl or heroin, 1.5 g daily comes in with hot and cold flashes, diarrhea, aches and pains, anxiety. He last used heroin on 05/04/2018. Patient has completed Subutex treatment, still has symptoms of hot and cold flushes, will continue to monitor. 1. Generalised weakness, likely from opiate withdrawal, will check for electrolyte imbalances 2. Acute opiate withdrawal, CINA score of 5, completed Subutex, will continue to monitor 3. Acute gastroenteritis, resolved 4. Chronic Hepatitis C, needs to follow-up in the outpatient 5. Nicotine dependence, advised to quit, on replacement. 6. Polysubstance use, advised to quit 7. DVT prophylaxis with early ambulation 8. Disposition; Possible DC in am if improved. Code Visit Inpatient E&M: 46289 Subs Hosp L2
[2018-05-09 16:23] LABS: Absolute Neutrophil Count 4.5 X10^3/uL (2.0-7.7); Basophil# 0.03 X10^3/uL; Basophil% 0.3 % (0-1); Eosinophils% 5.4 % (0-5); Hematocrit 43.2 % (40-54); Hemoglobin 14.5 g/dl (13.0-16.5); Lymphocyte % 30.4 % (19-41); Mean Corp Hgb Conc 33.6 g/gl (32-36); Mean Corpuscular Volume 86.4 fL (80-94); Mean Platelet Vol. 10.5 fl (6.2-12.0); Monocyte# 1.35 X10^3/uL; Monocyte% 14.7 % (0-10); Neutrophil # 4.51 X10^3/uL (2.7-7.7); Platelet Count 203 K/mm3 (150-450); RBC Distribution Width CV 13.3 % (11.6-14.6); RBC Distribution Width SD 42.2 fl (35.1-43.9); White Blood Count 9.2 K/mm3 (4.4-11.0)
[2018-05-09 16:24] LABS: POSITIVE COUNT NO; POSITIVE DIFFERENTIAL NO; POSITIVE MORPHOLOGY NO
[2018-05-09 16:29] LABS: Anion Gap 6 (5-15); BUN 11 mg/dL (7-18); BUN/Creat Ratio 11.6 RATIO (10-20); Calcium,Total 8.2 mg/dL (8.5-10.1); Chloride 106 mmol/L (98-107); Creatinine, Serum 0.95 mg/dL (0.70-1.30); EST Glomerular Filtration Rate 94 mL/min (>60); Est Glom Filt Rate - Afr Amer 113 mL/min (>60); Estimated Creatinine Clearance 81.21 ml/min; Glucose 99 mg/dL (74-106); Potassium 3.6 mmol/L (3.5-5.1); Sodium Level 141 mmol/L (136-145)
[2018-05-09 18:36] VITALS: BP 92/61; PULSE 71; RESP 16; TEMP 36.6
[2018-05-09 23:04] VITALS: BP 92/48; PULSE 73; RESP 14; TEMP 36.7; O2SAT 93
[2018-05-09] MEDS: traZODone 50 MG Tablet PO (23:08)
--- NOTE | 2018-05-09 23:36 | NURSING ---
Pt c/o muscle aches. When offered Methocarbamol, pt stated that it gave him restless leg. When offered mirapex he stated it didn't work. Offered other anxiolytics, pt denied every option but stated that he specifically wanted 'Diazapam'. Called Dr. Rice and stated that pt already has 'librium which was a much better option'. Informed pt of MD's answer and he stated he still 'didn't want anything but Diazepam'. Gave scheduled Trazadone.
[2018-05-10 05:41] VITALS: BP 104/78; PULSE 77; TEMP 36.6
--- NOTE | 2018-05-10 07:29 | PCM.DC.SUM ---
Discharge Date and Diagnosis - Problem List Patient Problems: Active and Suspected Problems (Last Reviewed 07/10/17 @ 14:38 by Cristina Perkins) Opioid withdrawal delirium, acute, hyperactive (Acute) Date of Admission: 05/06/18 Date of Discharge: 05/10/18 - Primary Discharge Diagnosis Active and Suspected Problems (Last Reviewed 07/10/17 @ 14:38 by Cristina Perkins) Opioid withdrawal delirium, acute, hyperactive (Acute) - Secondary Discharge Diagnosis Chronic Problems (Last Reviewed 07/10/17 @ 14:38 by Cristina Perkins) Polysubstance (including opioids) dependence, daily use (Chronic) Methamphetamine dependence (Chronic) Nicotine dependence (Chronic) Hepatitis C infection (Chronic) Hospital Course and Treatment Operations: None Summary of Care Provided: The patient is a 37 year old M [] Patient Problems: Active and Suspected Problems (Last Reviewed 07/10/17 @ 14:38 by Cristina Perkins) Opioid withdrawal delirium, acute, hyperactive (Acute) - Physical Exam Vital Signs Temp Pulse Resp BP Pulse Ox 97.8 F 77 14 104/78 93 05/10/18 05:41 05/10/18 05:41 05/09/18 23:04 05/10/18 05:41 05/09/18 23:04 Oxygen Delivery Method Room Air Weight: 55 kg Body Mass Index (BMI) 19.5 Intake and Output for Last 24 Hours 05/08/18 05/09/18 05/10/18 23:59 23:59 23:59 Intake Total 1750 / 1750 1390 / 1390 600 / 600 Balance 1750 / 1750 1390 / 1390 600 / 600 Laboratory Tests Past 24 Hrs 05/09/18 05/09/18 15:40 15:40 WBC 9.2 RBC 5.00 Hgb 14.5 Hct 43.2 MCV 86.4 MCH 29.0 MCHC 33.6 RDW 13.3 RDW Differential 42.2 Plt Count 203 MPV 10.5 Immature Gran % (Auto) 0.200 Neut % (Auto) 49.0 Lymph % (Auto) 30.4 [place] % (Auto) 14.7 H Eos % (Auto) 5.4 H Baso % (Auto) 0.3 Absolute Neuts (auto) 4.5 Absolute Lymphs (auto) 2.80 Total Counted Not Reportable Sodium 141 Potassium 3.6 Chloride 106 Carbon Dioxide 29.0 Anion Gap 6 BUN 11 Creatinine 0.95 Estim Creat Clear Calc 81.21 Est GFR (MDRD) Af Amer 113 Est GFR (MDRD) Non-Af 94 BUN/Creatinine Ratio 11.6 Glucose 99 Calcium 8.2 L Discharge Diet: No Restrictions Discharge Activity: Return to Normal Activity Home Medications: Medications to take at Discharge Ensure Enlive 120 ml PO 4X/DAY #100 liquid 05/09/18 Following Prescrptions Were Given to Patient: Ensure Enlive 120 ml PO 4X/DAY #100 liquid Primary Care Physician: Care Physician,No Primary [Primary Care Provider] - Please follow up with your Primary Care Physician in: within 1-2 weeks Disposition: Home Medical Necessity - Tobacco Use Smoking Status: Current every day smoker Tobacco Use: Cigarettes
[2018-05-10 08:26] VITALS: BP 113/67; PULSE 81; RESP 16; TEMP 37.1
[2018-05-10 13:50] VITALS: BP 120/68; PULSE 72; RESP 16; TEMP 36.7; O2SAT 97
== END 2018-05-10 13:55 | disposition home or self-care (01) | DRG 773 ==
LOC: ED 18:01 → MS3 21:06
PROVIDERS: Admitting Provider Internal Medicine; Emergency Provider Emergency Medicine; Visit Provider Internal Medicine
DX: F11.23 Opioid dependence with withdrawal (principal); B18.2 Chronic viral hepatitis C; E86.0 Dehydration; F15.20 Other stimulant dependence, uncomplicated; F17.210 Nicotine dependence, cigarettes, uncomplicated; K52.9 Noninfective gastroenteritis and colitis, unspecified; E43 Unspecified severe protein-calorie malnutrition; Z68.1 Body mass index [BMI] 19.9 or less, adult
CPT/HCPCS: 36415; 80048; 80076; 80307; 80320; 82150; 83690; 85025; 85610; 97802; 99283; 99406; J7030; A4216; G0480; J2405